=== PATIENT | female | born 1970 | race Caucasian/White ===

== ENCOUNTER 2020-11-02 16:23 | Outpatient (CLI) | payer BC, SELFPAY ==
--- NOTE | ~2020-11-02 | MM_ITS ---
EXAMINATION: MM screening [facility] BI w kareem HISTORY: Screening mammogram TECHNIQUE: Craniocaudal and mediolateral oblique 3-D tomosynthesis images were obtained and synthetic 2-D images were generated. CAD analysis was submitted and interpreted. COMPARISON: 10/30/2019, 10/29/2018, 10/23/2017 BREAST PARENCHYMAL COMPOSITION: There are scattered areas of fibroglandular density. FINDINGS: There is no evidence of suspicious mass, calcification, or architectural distortion to sugg est malignancy in either breast. There has been no suspicious interval change. IMPRESSION: 1. No mammographic evidence of malignancy. 2. Recommend routine screening mammography in one year. BI-RADS Category 1: Negative Reviewed, dictated and finalized at location A. E GAME WARDEN
== END 2020-11-02 16:24 | disposition home or self-care (01) ==
LOC: ANHIMG 16:29
PROVIDERS: PCP Nurse Practitioner Family; Visit Provider Nurse Practitioner Family
DX: Z12.31 Encounter for screening mammogram for malignant neoplasm of breast (principal)
CPT/HCPCS: 77063; 77067

== ENCOUNTER 2020-12-02 11:07 | Emergency (ER) | payer BC, SELFPAY ==
--- NOTE | ~2020-12-02 | XR_ITS ---
EXAMINATION: XR shoulder RT min 2V DATE: 12/02/2020 11:33 INDICATION: Right shoulder pain. Fall. TECHNIQUE: 4 views of right shoulder were obtained. COMPARISON: None. FINDINGS: Bone alignment is normal. No fracture. There is mild osteoarthritis of glenohumeral joint a nd acromioclavicular joint. There is a dystrophic calcification at coracoclavicular ligament. IMPRESSION: 1. Mild polyarticular osteoarthritis. Reviewed, dictated and finalized at location A. R ASSEMBLY INSPECTOR
--- NOTE | 2020-12-02 11:21 | ED.UPPEXIN ---
HPI - Extremity Injury (Upper) General Chief Complaint: Extremity Injury, Upper Stated Complaint: fall/rt shoulder Time Seen by Provider: 12/02/20 11:45 Source: patient and RN notes reviewed Mode of arrival: ambulatory Limitations: no limitations History of Present Illness HPI narrative: 50-year-old female presents concern for shoulder pain. Reports 1 hour ago she slipped on ice, hyper abducting her right arm and shoulder causing pain to her right shoulder, mainly in her right axillary area, worsening when she abducts her arm. She reports mild wrist pain, denies wrist tenderness to touch. Reports she took 600 mg of ibuprofen. complaint: injury to: right and shoulder Related Data Home Medications Medication Instructions Recorded Confirmed No Home Medications 12/02/20 12/02/20 Allergies Allergy/AdvReac Type Severity Reaction Status Date / Time povidone Allergy Severe RASH Verified 03/13/18 06:50 adhesive Allergy Unknown RASH Verified 03/13/18 06:50 povidone-iodine Allergy Unknown RASH Verified 03/13/18 06:50 soap Allergy Unknown RASH Verified 03/13/18 06:50 Review of Systems Review of Systems: Narrative: CONSTITUTIONAL: Denies malaise, chills, sweats, or fever. SKIN: Denies abrasions, lacerations MUSCULOSKELETAL: Reports right shoulder, axillary pain NEUROLOGIC: Denies numbness, weakness All systems reviewed & are unremarkable except as noted in HPI and below PMFSH Family History Family History (Updated 04/25/17 @ 12:05 by DOCTOR UNKNOWN) Grandparent Diabetes mellitus Carcinoma of colon Family history of primary malignant neoplasm of liver Family history of malignant neoplasm of esophagus Family history of malignant neoplasm of urinary bladder Mother Asthma Family history of chronic obstructive pulmonary disease Other Family history of malignant neoplasm of ovary Social History Social History Smoking status: Former smoker Smoking end date: 11/04/05 Comments At time of signature, agree with nursing past medical, surgical, social and family history. There is no relevant family history pertinent to the presenting complaint Exam Narrative: Exam Narrative: GENERAL: Well-appearing, well-nourished, and in no acute distress. HEAD: Normocephalic, atraumatic. EYES: PERRLA, conjunctivae clear NECK: Supple. CHEST: Speaks in full sentences. No respiratory distress. HEART: Regular rate and rhythm. Normal and equal peripheral pulses. EXTREMITIES: Right shoulder, arm have normal strength and sensation, normal range of motion. No edema or ecchymosis. 5/5 strength with shoulder abduction, abduction. Normal sensation with sensitivity to light touch and pain. Axillary tenderness. No open wounds, no skin tenting, no devitalized tissue or atrophy, no trophic changes, no obvious deformity, alignment normal, nearby joints and structures intact. Distal pulses palpable and equal bilaterally, skin warm, dry, pink. Capillary refill less than 3 seconds. SKIN: Warm, dry, no rash. NEURO: Alert and oriented x3. PSYCH: Normal mood and affect Course Course Emergency Course: Patient is aware of diagnosis, understands and agrees to treatment plan. Anticipatory guidance given. Patient agrees to follow-up as directed and is aware of reasons to seek care at the emergency department. Portions of this record may have been created with voice recognition software Vital Signs Vital signs: Vital Signs Temperature 97.8 F 12/02/20 11:22 Pulse Rate 67 12/02/20 11:22 Respiratory Rate 16 12/02/20 11:22 Blood Pressure 129/60 12/02/20 11:22 Pulse Oximetry 100 12/02/20 11:22 Temperature 97.8 F 12/02/20 11:22 Pulse Rate 67 12/02/20 11:22 Respiratory Rate 16 12/02/20 11:22 Blood Pressure 129/60 12/02/20 11:22 Pulse Oximetry 100 12/02/20 11:22 Reviewed. MDM - Extremity Injury (Upper) MDM Narrative Medical decision making narrative: Patients injury and pain is consistent with musculoskelet
[2020-12-02 11:22] VITALS: BP 129/60; PULSE 67; RESP 16; TEMP 36.6; O2SAT 100
== END 2020-12-02 12:05 | disposition home or self-care (01) ==
PROVIDERS: Emergency Provider Nurse Practitioner; PCP Family Medicine
DX: S49.91XA Unspecified injury of right shoulder and upper arm, initial encounter (principal); W00.0XXA Fall on same level due to ice and snow, initial encounter
CPT/HCPCS: 73030; 99213; G0463

== ENCOUNTER → 2021-01-21 01:25 | Outpatient (CLI) | payer BC, SELFPAY ==
[2021-01-21 19:13] LABS: SARS-CoV-2 RNA PCR Negative
== END ==
PROVIDERS: PCP Family Medicine; Visit Provider Internal Medicine Gastroenterology
DX: Z01.812 Encounter for preprocedural laboratory examination (principal); Z20.822 Contact with and (suspected) exposure to COVID-19
CPT/HCPCS: C9803; U0003; U0005

== ENCOUNTER 2021-01-25 02:28 | Day surgery (SDC) | payer BC, SELFPAY ==
[2021-01-17 14:03] VITALS: BMI 27.3
[2021-01-25 09:59] VITALS: BP 128/83; PULSE 88; RESP 16; TEMP 36.6; O2SAT 97; BMI 27.5
[2021-01-25] MEDS: LACTATED RINGERS 1,000 ML 150 ML IV CONT (10:09)
--- NOTE | 2021-01-25 10:37 | WPDANESEPPF ---
Anes - Initial Pre Proc Eval Procedure: Operation Date: 01/25/21 11:00 Proposed Procedures p Colonoscopy - Tashi Alejandra MD Date/Time: 01/25/21 10:37 Surgeon: Tashi Alejandra MD Pre Op Diagnosis: personal history of Colon Cancer Patient Data Age: 50 Gender: F Height: 5 ft 3 in Weight: 70.5 kg Last Vital Signs Temp 98 F 01/25/21 09:59 Pulse 88 01/25/21 09:59 Resp 16 01/25/21 09:59 BP 128/83 01/25/21 09:59 Pulse Ox 97 01/25/21 09:59 Allergies Allergy/AdvReac Type Severity Reaction Status Date / Time povidone Allergy Severe RASH Verified 01/25/21 09:58 adhesive Allergy Unknown RASH Verified 01/25/21 09:58 povidone-iodine Allergy Unknown RASH Verified 01/25/21 09:58 soap Allergy Unknown RASH Verified 01/25/21 09:58 Home Medications Medication Instructions Recorded Confirmed Type No Home Medications 12/02/20 01/25/21 History Patient hx anesthesia problems: none Family hx anesthesia problems: none PMFSH Past Medical History Medical History (Updated 01/25/21 @ 10:33 by Richie Kendrick MD) H/O colon cancer, stage I H/O: lung cancer Family History Family History (Updated 04/25/17 @ 12:05 by DOCTOR UNKNOWN) Grandparent Diabetes mellitus Carcinoma of colon Family history of primary malignant neoplasm of liver Family history of malignant neoplasm of esophagus Family history of malignant neoplasm of urinary bladder Mother Asthma Family history of chronic obstructive pulmonary disease Other Family history of malignant neoplasm of ovary Social History Social History Years smoked: 8 Smoking status: Former smoker Tobacco type: cigarettes Smoking end date: 11/04/05 Alcohol intake: never Substance use: never Substance use type: does not use Living arrangements: with family Spiritual care concerns: No Anes - Eval Final PreProcedure Day of Procedure 01/25/21 10:37 Patient weight: normal Heart: regular rate and rhythm Lungs: clear to auscultation Airway: Mallampati scale class II Neurological: alert and oriented Last oral intake: >/= 8 hours ASA classification: III Emergent: no Anesthetic plan: proceed Anesthesia type and monitoring: general GIVS and standard monitoring Informed Consent: The patient's anesthetic plan and its attendant risks and benefits were discussed with the patient/family/POA. Questions were solicited and answers provided to the satisfaction of the patient/family/POA.
[2021-01-25 11:14] VITALS: BP 133/61; PULSE 81; RESP 24; O2SAT 98
[2021-01-25 11:24] VITALS: BP 106/75; PULSE 78; RESP 21; O2SAT 100
[2021-01-25 11:34] VITALS: BP 131/92; PULSE 76; RESP 22; O2SAT 99
[2021-01-25 11:44] VITALS: BP 121/76; PULSE 67; RESP 16; O2SAT 100
--- NOTE | 2021-01-26 17:10 | PM.HPGS ---
History of Present Illness History of Present Illness Consent: Risks, benefits, and alternatives have been discussed and questions answered. Patient agrees to proceed with procedure. Chief complaint: personal history of Colon Cancer Narrative: Jessica Rizzo is a 50 year old female with a personal history of colon cancer Review of Systems Review of Systems: All systems reviewed & are unremarkable except as noted in HPI and below PMFSH Past Medical History Medical History H/O colon cancer, stage I H/O: lung cancer Family History Family History Grandparent Diabetes mellitus Carcinoma of colon Family history of primary malignant neoplasm of liver Family history of malignant neoplasm of esophagus Family history of malignant neoplasm of urinary bladder Mother Asthma Family history of chronic obstructive pulmonary disease Other Family history of malignant neoplasm of ovary Social History Social History Years smoked: 8 Smoking status: Former smoker Tobacco type: cigarettes Smoking end date: 11/04/05 Alcohol intake: never Substance use: never Substance use type: does not use Living arrangements: with family Spiritual care concerns: No Meds Home Medications and Allergies Home Medications Medication Instructions Recorded Confirmed Type No Home Medications 12/02/20 01/25/21 History Allergies Allergy/AdvReac Type Severity Reaction Status Date / Time povidone Allergy Severe RASH Verified 01/25/21 09:58 adhesive Allergy Unknown RASH Verified 01/25/21 09:58 povidone-iodine Allergy Unknown RASH Verified 01/25/21 09:58 soap Allergy Unknown RASH Verified 01/25/21 09:58 Exam Resp: Auscultation: clear to auscultation bilaterally Cardio: Rate: regular rate Rhythm: regular rhythm GI: GI Palp: Yes Soft to palpation and No Tenderness to palpation present (GI) Assessment and Plan Assessment and plan (1) History of colon cancer: Code(s): Z85.038 - Personal history of other malignant neoplasm of large intestine Status: Acute
== END 2021-01-25 11:51 | disposition home or self-care (01) ==
PROVIDERS: PCP Family Medicine; Visit Provider Internal Medicine Gastroenterology
PROC: 0DJD8ZZ Inspection of Lower Intestinal Tract, Via Natural or Artificial Opening Endoscopic (ICD-10-PCS; CPT 45378; principal; 2021-01-25 11:00)
DX: Z12.11 Encounter for screening for malignant neoplasm of colon (principal); Z85.038 Personal history of other malignant neoplasm of large intestine; Z98.0 Intestinal bypass and anastomosis status; Z90.49 Acquired absence of other specified parts of digestive tract; Z85.118 Personal history of other malignant neoplasm of bronchus and lung; Z87.891 Personal history of nicotine dependence
CPT/HCPCS: 45378; C9803; J2704; J7120; U0003; U0005

== ENCOUNTER 2021-03-31 14:18 | Outpatient (CLI) | payer BC, SELFPAY ==
--- NOTE | ~2021-03-31 | US_ITS ---
EXAMINATION: US art doppler w press DOLORES RODRIGUEZ DATE: 03/31/2021 16:05 CDT INDICATION: Leg pain TECHNIQUE: Segmental pressures and plethysmographic and Doppler waveforms of the brachial and lower e xtremity arteries were obtained. COMPARISON: None. FINDINGS: Right and left brachial artery pressures of 110 mm Hg and 126 mm Hg, respectively, are concordant (no rmal difference <= 30 mmHg). The right high-thigh pressure index is 1.26 (normal > 1.2). The right ankle-brachial index (ZINA) is 1 .17 (normal >= 0.9-1.0). The right great toe-brachial index (TBI) is 0.69 (normal >= 0.60). The right lower extremity segmental pressure gradients are within normal limits (normal gradients <= 20-30 mmH g between adjacent levels on the same leg or the same levels on the two legs). Arterial Doppler wavef orms are predominantly biphasic. The left high-thigh pressure index is 1.33. The left ZINA is 1.12. The left TBI is 0.33. The left lowe r extremity segmental pressure gradients are increased below the left ankle. Arterial Doppler wavefor ms are biphasic. IMPRESSION: 1. Decreased left toe brachial index measuring 0.33, consistent with peripheral arterial disease. 2: Normal right lower extremity arterial Doppler. Reviewed, dictated and finalized at location A.
== END 2021-03-31 14:19 | disposition home or self-care (01) ==
PROVIDERS: PCP Family Medicine; Visit Provider Nurse Practitioner Family
DX: M79.605 Pain in left leg (principal); M79.604 Pain in right leg
CPT/HCPCS: 93923

== ENCOUNTER 2021-12-20 16:19 | Outpatient (CLI) | payer BC, SELFPAY ==
--- NOTE | ~2021-12-20 | MM_ITS ---
EXAMINATION: MM screening [facility] w kareem HISTORY: Screening TECHNIQUE: Craniocaudal and mediolateral oblique 3-D tomosynthesis images were obtained and synthetic 2-D images were generated. CAD analysis was submitted and interpreted. COMPARISON: Comparison to multiple prior studies sequentially, with oldest reviewed study dated 10/04. BREAST PARENCHYMAL COMPOSITION: The breasts are heterogenously dense, which may obscure small masses FINDINGS: There is no evidence of suspicious mass, calcification, or architectural distortion to sugg est malignancy in either breast. There has been no suspicious interval change. IMPRESSION: 1. No mammographic evidence of malignancy. 2. Recommend routine screening mammography in one year. BI-RADS Category 1: Negative Reviewed, dictated and finalized at location A. ELET FORM COVERER
== END 2021-12-20 16:20 | disposition home or self-care (01) ==
LOC: ANHIMG 16:21
PROVIDERS: PCP Nurse Practitioner Family; Visit Provider Obstetrics & Gynecology Gynecology
DX: Z12.31 Encounter for screening mammogram for malignant neoplasm of breast (principal)
CPT/HCPCS: 77063; 77067

== ENCOUNTER 2022-01-07 10:13 | Emergency (ER) | payer BC, SELFPAY ==
--- NOTE | ~2022-01-07 | XR_ITS ---
EXAMINATION: XR ankle RT min 3V DATE: 01/07/2022 10:33 INDICATION: Right ankle pain. TECHNIQUE: 4 views of right ankle were obtained. COMPARISON: None. FINDINGS: Bone alignment is normal. No fracture. Joint spaces are well maintained. There is an enthes ophyte at posterior aspect of calcaneal tuberosity. There is ankle soft tissue swelling. IMPRESSION: 1. No fracture. Reviewed, dictated and finalized at location A. TER ADVOCATE IMPRESSION: 1. No fracture.
--- NOTE | ~2022-01-07 | XR_ITS ---
EXAMINATION: XR foot RT min 3V DATE: 01/07/2022 10:33 INDICATION: Right foot pain. TECHNIQUE: 4 views of right foot were obtained. COMPARISON: None. FINDINGS: Bone alignment is normal. No fracture. There is mild osteoarthritis of first metatarsophala ngeal joint. There is an enthesophyte at posterior aspect of calcaneal tuberosity. IMPRESSION: 1. Mild osteoarthritis of first metatarsophalangeal joint. Reviewed, dictated and finalized at location A. REPAIRER
[2022-01-07 10:33] VITALS: BP 118/68; PULSE 92; RESP 16; TEMP 36.7; O2SAT 100
--- NOTE | 2022-01-07 10:37 | ED.GENADULT ---
HPI - General Adult General Chief complaint: Extremity Injury, Lower Stated complaint: Right ankle injury Source: patient Mode of arrival: ambulatory Limitations: no limitations History of Present Illness HPI narrative: Patient presents for evaluation of right ankle pain. She indicates she was walking on steps last night when she missed a step and fell, landing on her right ankle. She heard a pop and called for help. She did not hit her head nor did she have a LOC. She states her current pain level is 2/10 in severity, worse with movement and weightbearing. She has been ambulating with crutches. She took ibuprofen last night. It helped for about four hours. She took a second dose thereafter, but has not taken any medication today for her pain. No additional complaints or concerns. Related Data Home Medications Medication Instructions Recorded Confirmed No Home Medications 12/02/20 01/25/21 Allergies Allergy/AdvReac Type Severity Reaction Status Date / Time povidone Allergy Severe RASH Verified 01/25/21 09:58 adhesive Allergy Unknown RASH Verified 01/25/21 09:58 povidone-iodine Allergy Unknown RASH Verified 01/25/21 09:58 soap Allergy Unknown RASH Verified 01/25/21 09:58 Review of Systems Review of Systems: CONSTITUTIONAL: Denies fever, chills, or sweats. EYES: Denies visual changes, redness, or discharge. ENT: Denies rhinorrhea, congestion, sore throat, or otalgia. CARDIOVASCULAR: Denies chest pain, palpitations RESPIRATORY: Denies cough or dyspnea. GASTROINTESTINAL: Denies abdominal pain, nausea, vomiting, or diarrhea. GENITOURINARY: Denies dysuria or hematuria. SKIN: Denies rash or itching. MUSCULOSKELETAL: Reports right ankle pain and swelling. Denies back pain. NEUROLOGIC: Denies headache, numbness, dizziness, or weakness. PSYCHIATRIC: Denies anxiety or depression. [facility] Past Medical History Medical History H/O colon cancer, stage I H/O: lung cancer Surgical History Surgical History History of hysterectomy History of lobectomy of lung History of partial colectomy Family History Family History Grandparent Diabetes mellitus Carcinoma of colon Family history of primary malignant neoplasm of liver Family history of malignant neoplasm of esophagus Family history of malignant neoplasm of urinary bladder Mother Asthma Family history of chronic obstructive pulmonary disease Other Family history of malignant neoplasm of ovary Social History Social History Years smoked: 8 Smoking status: Former smoker Tobacco type: cigarettes Smoking end date: 11/04/05 Alcohol intake: never Substance use: never Substance use type: does not use Living arrangements: with family Gender identity (if verbalized by the patient): Female Sexual Orientation (if Verbalized by the Patient): Straight or Heterosexual Spiritual care concerns: No Exam Narrative: GENERAL: Well-appearing, well-nourished, and in no acute distress. HEAD: Normocephalic, atraumatic. EYES: PERRLA and EOMI. ENT: Nares clear, no rhinorrhea or epistaxis. Mucous membranes moist. Oropharynx without tonsillar hypertrophy exudate or other lesions. Bilateral TMs pearly calderón nonbulging NECK: Supple. No adenopathy or masses. No carotid bruits or JVD CHEST: Clear to auscultation. No respiratory distress. No wheezes rales or rhonchi HEART: Regular rate and rhythm. No murmur heard. Normal peripheral pulses. ABDOMEN: Soft, nontender, nondistended, normal active bowel sounds. EXTREMITIES: There is swelling noted to right ankle. No crepitus or deformity. No tenderness over medial or lateral malleolus. Tenderness over dorsal aspect of proximal right foot. Decreased dorsi and plantarflexion of r
== END 2022-01-07 10:56 | disposition home or self-care (01) ==
PROVIDERS: Emergency Provider Nurse Practitioner
DX: S93.401A Sprain of unspecified ligament of right ankle, initial encounter (principal); W10.9XXA Fall (on) (from) unspecified stairs and steps, initial encounter; Z87.891 Personal history of nicotine dependence; Z85.038 Personal history of other malignant neoplasm of large intestine; Z85.118 Personal history of other malignant neoplasm of bronchus and lung
CPT/HCPCS: 73610; 73630; 99213; G0463

== ENCOUNTER 2022-10-16 11:57 | Emergency (ER) | payer BC, SELFPAY ==
[2022-10-16] VITALS (9 sets, daily range): BP systolic 97–116; BP diastolic 60–88; PULSE 70–93; RESP 14–20; TEMP 36.9; O2SAT 98–100
--- NOTE | ~2022-10-16 | XR_ITS ---
EXAMINATION: XR chest 2V DATE: 10/16/2022 12:27 INDICATION: Chest pain. TECHNIQUE: Frontal and lateral views of the chest were obtained. COMPARISON: None. FINDINGS: There is no pneumonia, pleural effusion, or pneumothorax. The heart size is normal. IMPRESSION: 1. No acute cardiopulmonary disease. Reviewed, dictated and finalized at location A. ORATE TRAINING MANAGER
--- NOTE | ~2022-10-16 | CT_ITS ---
EXAMINATION: CT brain wo con INDICATION: Dizziness and paresthesias COMPARISON: None TECHNIQUE: Standard unenhanced head CT. The dose-length product (DLP) was 605.33 mGy-cm. The mA was a djusted according to patient size. Iterative reconstruction technique was employed. FINDINGS: There is no intracranial hemorrhage, acute infarction, or abnormal mass lesion. The ventric les are normal. There is no abnormal mass effect or midline shift. The calderón-white matter differentiat ion is normal. The basal cisterns are patent. The orbits are normal. The paranasal sinuses, mastoids and calvarium are normal. IMPRESSION: 1. No acute intracranial abnormality. Reviewed, dictated and finalized at location A. IZED FINISH PLATER
--- NOTE | 2022-10-16 12:01 | ECG_ITS ---
Measurements Intervals Accident Rate: 84 P: 69 WY: 131 QRS: 61 QRSD: 77 T: 42 QT: 364 QTc: 432 Interpretive Statements SINUS RHYTHM NO PREVIOUS ECG AVAILABLE FOR COMPARISON Electronically Signed On 10-16-2022 16:36:39 CITY PLANNING ENGINEER by Chava Lee M.D.
[2022-10-16 12:59] LABS: Basophils Percent Auto 0.3 % (0.2-1.2); Eosinophils Percent Auto 0.3 % (0-4.4); Hemoglobin 13.3 g/dL (12.0-15.0); Immature Granulocyte Absolute 0.04 K/mm3 (0.00-0.031); Immature Granulocyte Percent A 0.4 % (0-0.5); Lymphocytes Absolute Auto 1.77 K/mm3 (0.9-3.2); Lymphocytes Percent Auto 17.3 % (18.3-44.2); Mean Corpuscular HGB Conc 34.1 g/dl (32-36); Mean Corpuscular Hemoglobin 30.3 pg (26-34); Mean Corpuscular Volume 88.8 fl (80-100); Mean Platelet Volume 10.8 fl (7.4-10.4); Monocytes Absolute Auto 0.4 K/mm3 (0.1-0.6); Monocytes Percent Auto 4.1 % (2.6-8.5); Neutrophils Percent Auto 77.6 % (45.5-73.1); Platelet Count Result 255 k/mm3 (150-375); Red Blood Count 4.39 M/mm3 (4.2-5.4); Red Cell Distribution Width 12.5 % (11.5-14.5); White Blood Count 10.2 K/mm3 (4.5-10.0)
[2022-10-16 13:08] LABS: Prothrombin Time 13.2 Seconds (11.1-14.7)
[2022-10-16 13:09] LABS: Partial Thromboplastin Time 27.3 SECONDS (22.3-36.8)
[2022-10-16 13:10] LABS: Alanine Aminotransferase 30 U/L (6-35); Albumin Level 4.6 g/dL (3.5-5.1); Alkaline Phosphatase 80 U/L (38-126); Anion Gap 9 mmol/L (8-16); Aspartate Amino Transferase 40 U/L (14-36); Bilirubin,Total 0.6 mg/dL (0.2-1.3); Blood Urea Nitrogen 12 mg/dL (7-17); Calcium 8.5 mg/dL (8.4-10.2); Carbon Dioxide 24 mmol/L (22-30); Chloride 94 mmol/L (98-107); Estimated CRCL calculation 90 ml/min; Estimated Glomerular Filt Rate > 60; Glucose 83 mg/dL (65-110); Lipase 144 U/L (23-300); Potassium 3.7 mmol/L (3.4-5.0); Sodium 127 mmol/L (137-145)
[2022-10-16 13:22] LABS: Troponin I < 0.012 ng/mL (0.000-0.034)
[2022-10-16 16:06] LABS: Troponin I < 0.012 ng/mL (0.000-0.034)
--- NOTE | 2022-10-16 16:18 | ED.CHESTPAIN ---
HPI - Chest Pain General Chief Complaint: Chest Pain Stated Complaint: dizziness with bilateral hand/leg numbness Time Seen by Provider: 10/16/22 15:58 Source: patient Mode of arrival: ambulatory Limitations: no limitations History of Present Illness HPI narrative: This is a 52 year old female that presents to the ER for chest pain ongoing over the last month. Reports the pain is burning in nature and intermittent. Sometimes the pain is worse with movement. Reports she did recently see her PCP for heart burn. She was taking famotidine, but felt her symptoms were relieved so stopped taking it. Reports she has been feeling lightheaded and weak. She woke up today with paresthesias in her bilateral lower extremities which prompted her to be seen today. Denies fever, vision changes, abdominal pain, vomiting, cough, shortness of breath, dysuria, or lower extremity edema. Related Data Home Medications Medication Instructions Recorded Confirmed No Home Medications 12/02/20 01/25/21 Allergies Allergy/AdvReac Type Severity Reaction Status Date / Time povidone Allergy Severe RASH Verified 10/16/22 11:58 adhesive Allergy Unknown RASH Verified 10/16/22 11:58 povidone-iodine Allergy Unknown RASH Verified 10/16/22 11:58 soap Allergy Unknown RASH Verified 10/16/22 11:58 Review of Systems Review of Systems: CONSTITUTIONAL: Denies fever EYES: Denies visual changes CARDIOVASCULAR: Reports chest pain, and edema. RESPIRATORY: Denies cough or dyspnea. GASTROINTESTINAL: Denies abdominal pain, nausea, vomiting GENITOURINARY: Denies dysuria MUSCULOSKELETAL: Denies back pain, joint pain, or myalgia. NEUROLOGIC: Denies headache, numbness, or weakness. All systems reviewed & are unremarkable except as noted in HPI and below PMFSH Past Medical History Medical History H/O colon cancer, stage I H/O: lung cancer Surgical History Surgical History History of hysterectomy History of lobectomy of lung History of partial colectomy Family History Family History Grandparent Diabetes mellitus Carcinoma of colon Family history of primary malignant neoplasm of liver Family history of malignant neoplasm of esophagus Family history of malignant neoplasm of urinary bladder Mother Asthma Family history of chronic obstructive pulmonary disease Other Family history of malignant neoplasm of ovary Social History Social History Years smoked: 8 Smoking status: Former smoker Tobacco type: cigarettes Smoking end date: 11/04/05 Alcohol intake: never Substance use: never Substance use type: does not use Gender identity (if verbalized by the patient): Female Sexual Orientation (if Verbalized by the Patient): Straight or Heterosexual Spiritual care concerns: No Exam Narrative: GENERAL: Well-appearing, well-nourished, and in no acute distress. HEAD: Normocephalic, atraumatic. EYES: PERRLA and EOMI. ENT: Nares clear, no rhinorrhea or epistaxis. Mucous membranes moist. Oropharynx without tonsillar hypertrophy exudate or other lesions. Bilateral TMs pearly calderón non-bulging NECK: Supple. No adenopathy or masses. CHEST: Clear to auscultation. No respiratory distress. No wheezes rales or rhonchi HEART: Regular rate and rhythm. No murmur heard. Normal peripheral pulses. EXTREMITIES: Normal range of motion. No edema. Strength equal in bilateral upper and lower extremities (5/5) SKIN: Warm, dry, no rash. NEURO: No focal deficits. Alert and oriented x3. Cranial nerves II through XII grossly intact PSYCH: Normal mood and affect Course Consultations Consultation #1: Spoke with hospitalist about patient and work-up who accepts admission Date: 10/16/22 Vital Signs Vital signs: Vital Signs
[2022-10-16 17:01] LABS: NT Pro B Type Natriuretic Pept 69 pg/mL (5-100)
[2022-10-16] MEDS: SODIUM CHLORIDE 0.9% IV 1,000 ML 999 ML IV CONT (17:09)
[2022-10-16] MEDS: PANTOPRAZOLE SODIUM IV 40 MG VIAL IV PUSH (17:09)
[2022-10-16 17:14] LABS: D Dimer 0.34 ug/mL (<0.48)
[2022-10-16 20:00] LABS: Magnesium 1.9 mg/dL (1.6-2.3)
[2022-10-16 20:23] LABS: Influenza A QL RT-PCR Negative (Negative); Influenza B QL RT-PCR Negative (Negative); SARS-CoV-2 RNA PCR Negative
[2022-10-16 21:09] LABS: Folic Acid > 20.0 ng/mL (2.76->20); Vitamin B12 > 1000.0 pg/mL (239-931)
== END 2022-10-16 19:54 | disposition home or self-care (01) ==
PROVIDERS: Emergency Medicine; Physician Assistant; Emergency Provider Emergency Medicine; PCP Nurse Practitioner Family
DX: E87.1 Hypo-osmolality and hyponatremia (principal); R20.2 Paresthesia of skin; Z85.038 Personal history of other malignant neoplasm of large intestine; Z85.118 Personal history of other malignant neoplasm of bronchus and lung
CPT/HCPCS: 36415; 70450; 71046; 80053; 82607; 82746; 83690; 83735; 83880; 84484; 85025; 85380; 85610; 85730; 87636; 93005; 96361; 96374; 99284; C9113; J7030

== ENCOUNTER 2022-12-24 10:08 | Outpatient (CLI) | payer BC, SELFPAY ==
--- NOTE | ~2022-12-24 | MM_ITS ---
EXAMINATION: MM screening [facility] w kareem HISTORY: Screening mammogram TECHNIQUE: Craniocaudal and mediolateral oblique 3-D tomosynthesis images were obtained and synthetic 2-D images were generated. CAD analysis was submitted and interpreted. COMPARISON: December 20, 2021, November 02, 2020, October 30, 2019 bilateral screening mammogram exa minations BREAST PARENCHYMAL COMPOSITION: There are scattered areas of fibroglandular density. FINDINGS: There is no evidence of suspicious mass, calcification, or architectural distortion to sugg est malignancy in either breast. There has been no suspicious interval change. IMPRESSION: 1. No mammographic evidence of malignancy. 2. Recommend routine screening mammography in one year. BI-RADS Category 1: Negative Reviewed, dictated and finalized at location A. MENT STAPLER
== END 2022-12-24 10:09 | disposition home or self-care (01) ==
PROVIDERS: PCP Nurse Practitioner Family; Visit Provider Advanced Practice Midwife
DX: Z12.31 Encounter for screening mammogram for malignant neoplasm of breast (principal)
CPT/HCPCS: 77063; 77067

== ENCOUNTER 2023-12-25 08:55 | Outpatient (CLI) | payer BC, SELFPAY ==
[2023-12-25 09:14] LABS: Basophils Percent Auto 0.5 % (0.2-1.2); Eosinophils Absolute Auto 0.1 K/mm3 (0-0.3); Eosinophils Percent Auto 1.2 % (0-4.4); Hematocrit 42.5 % (37.0-47.0); Hemoglobin 13.7 g/dL (12.0-15.0); Immature Granulocyte Absolute 0.03 K/mm3 (0.00-0.031); Immature Granulocyte Percent A 0.5 % (0-0.5); Lymphocytes Absolute Auto 1.86 K/mm3 (0.9-3.2); Lymphocytes Percent Auto 32.2 % (18.3-44.2); Mean Corpuscular HGB Conc 32.2 g/dl (32-36); Mean Corpuscular Hemoglobin 28.8 pg (26-34); Mean Corpuscular Volume 89.5 fl (80-100); Mean Platelet Volume 9.8 fl (7.4-10.4); Monocytes Absolute Auto 0.5 K/mm3 (0.1-0.6); Monocytes Percent Auto 8.7 % (2.6-8.5); Neutrophils Absolute Auto 3.3 K/mm3 (1.3-6.7); Neutrophils Percent Auto 56.9 % (45.5-73.1); Platelet Count Result 288 k/mm3 (150-375); Red Blood Count 4.75 M/mm3 (4.2-5.4); Red Cell Distribution Width 12.4 % (11.5-14.5); White Blood Count 5.8 K/mm3 (4.5-10.0)
== END 2023-12-25 08:56 | disposition home or self-care (01) ==
PROVIDERS: PCP Family Medicine; Visit Provider Internal Medicine Gastroenterology
DX: R19.7 Diarrhea, unspecified (principal)
CPT/HCPCS: 36415; 85025; 87045; 87427; 87449; 89055

== ENCOUNTER 2024-01-15 10:02 | Outpatient (CLI) | payer BC, SELFPAY ==
--- NOTE | ~2024-01-15 | MM_ITS ---
EXAMINATION: MM screening [facility] w kareem HISTORY: Screening mammogram TECHNIQUE: Craniocaudal and mediolateral oblique 3-D tomosynthesis images were obtained and synthetic 2-D images were generated. CAD analysis was submitted and interpreted. COMPARISON: December 24, 2022, December 20, 2021, November 02, 2020 bilateral screening mammogram exa minations BREAST PARENCHYMAL COMPOSITION: There are scattered areas of fibroglandular density. FINDINGS: There is no evidence of suspicious mass, calcification, or architectural distortion to sugg est malignancy in either breast. There has been no suspicious interval change. IMPRESSION: 1. No mammographic evidence of malignancy. 2. Recommend routine screening mammography in one year. BI-RADS Category 1: Negative Reviewed, dictated and finalized at location A.
== END 2024-01-15 10:03 | disposition home or self-care (01) ==
LOC: ANHIMG 10:07
PROVIDERS: PCP Family Medicine; Visit Provider Obstetrics & Gynecology Gynecology
DX: Z12.31 Encounter for screening mammogram for malignant neoplasm of breast (principal)
CPT/HCPCS: 77063; 77067

== ENCOUNTER 2024-02-17 01:14 | Day surgery (SDC) | payer BC, SELFPAY ==
[2024-01-31 14:52] VITALS: BMI 26.6
[2024-02-17 13:08] VITALS: BP 132/83; PULSE 86; RESP 18; TEMP 36.1; O2SAT 99
[2024-02-17] MEDS: LACTATED RINGERS 1,000 ML 150 ML IV CONT (13:16)
--- NOTE | 2024-02-17 13:49 | WPDANESEPPF ---
Anes - Initial Pre Proc Eval Procedure: Operation Date: 02/17/24 14:00 Proposed Procedures p Colonoscopy - Imer Alicia MD Date/Time: 02/17/24 13:49 Surgeon: Imer Alicia MD Pre Op Diagnosis: Diarrhea, acquired absence of other specified par Patient Data Age: 53 Gender: F Height: 1.6 m Weight: 72 kg Last Vital Signs Temp 96.9 F L 02/17/24 13:08 Pulse 86 02/17/24 13:08 Resp 18 02/17/24 13:08 BP 132/83 02/17/24 13:08 Pulse Ox 99 02/17/24 13:08 O2 Del Method Room Air 02/17/24 13:08 Allergies Allergy/AdvReac Type Severity Reaction Status Date / Time povidone Allergy Severe RASH Verified 02/17/24 13:07 adhesive Allergy Unknown RASH Verified 02/17/24 13:07 povidone-iodine Allergy Unknown RASH Verified 02/17/24 13:07 soap Allergy Unknown RASH Verified 02/17/24 13:07 Home Medications Medication Instructions Recorded Confirmed Type No Home Medications 12/02/20 01/31/24 History Patient hx anesthesia problems: none Family hx anesthesia problems: none Results Review: All pre-operative results and documents have been reviewed as part of the pre-operative evaluation. [facility] Past Medical History Medical History H/O colon cancer, stage I H/O: lung cancer Surgical History Surgical History History of hysterectomy History of lobectomy of lung History of partial colectomy Family History Family History Grandparent Diabetes mellitus Carcinoma of colon Family history of primary malignant neoplasm of liver Family history of malignant neoplasm of esophagus Family history of malignant neoplasm of urinary bladder Mother Asthma Family history of chronic obstructive pulmonary disease Other Family history of malignant neoplasm of ovary Social History Social History Years smoked: 8 Smoking status: Former smoker Tobacco type: cigarettes Smoking end date: 11/04/05 Alcohol intake: never Alcohol use details: rarely Substance use: never Substance use type: does not use Do You Feel Safe in your Home?: Yes Lack of Transportation: No Lack of Food: Never True Current Housing: I Have Housing Concerned About Future Housing: No Difficulty Paying Gas/Electric Bills: No Difficulty Paying for Meds: No Currently Unemployed: No Education: High School Diploma/GED Difficulty w/ Childcare or Family Care: No Living arrangements: with family Gender identity (if verbalized by the patient): Female Sexual Orientation (if Verbalized by the Patient): Straight or Heterosexual Spiritual care concerns: No Anes - Eval Final PreProcedure Day of Procedure 02/17/24 13:49 Patient weight: normal Heart: regular rate and rhythm Lungs: clear to auscultation Airway: Mallampati scale class II Neurological: alert and oriented Last oral intake: >/= 8 hours ASA classification: III Emergent: no Anesthetic plan: proceed Anesthesia type and monitoring: general GIVS and standard monitoring Results Review: All pre-operative results and documents have been reviewed as part of the pre-operative evaluation. Informed Consent: The patient's anesthetic plan and its attendant risks and benefits were discussed with the patient/family/POA. Questions were solicited and answers provided to the satisfaction of the patient/family/POA.
--- NOTE | 2024-02-17 13:59 | PM.HPGS ---
History of Present Illness History of Present Illness Consent: Risks, benefits, and alternatives have been discussed and questions answered. Patient agrees to proceed with procedure. Chief complaint: Diarrhea, acquired absence of other specified par Narrative: Jessica Rizzo is a 53 year old female with history of colon cancer 2017, last colonoscopy 2020 Review of Systems Review of Systems: All systems reviewed & are unremarkable except as noted in HPI and below PMFSH Past Medical History Medical History H/O colon cancer, stage I H/O: lung cancer Surgical History Surgical History History of hysterectomy History of lobectomy of lung History of partial colectomy Family History Family History Grandparent Diabetes mellitus Carcinoma of colon Family history of primary malignant neoplasm of liver Family history of malignant neoplasm of esophagus Family history of malignant neoplasm of urinary bladder Mother Asthma Family history of chronic obstructive pulmonary disease Other Family history of malignant neoplasm of ovary Social History Social History Years smoked: 8 Smoking status: Former smoker Tobacco type: cigarettes Smoking end date: 11/04/05 Alcohol intake: never Alcohol use details: rarely Substance use: never Substance use type: does not use Do You Feel Safe in your Home?: Yes Lack of Transportation: No Lack of Food: Never True Current Housing: I Have Housing Concerned About Future Housing: No Difficulty Paying Gas/Electric Bills: No Difficulty Paying for Meds: No Currently Unemployed: No Education: High School Diploma/GED Difficulty w/ Childcare or Family Care: No Living arrangements: with family Gender identity (if verbalized by the patient): Female Sexual Orientation (if Verbalized by the Patient): Straight or Heterosexual Spiritual care concerns: No Meds Home Medications and Allergies Home Medications Medication Instructions Recorded Confirmed Type No Home Medications 12/02/20 01/31/24 History Allergies Allergy/AdvReac Type Severity Reaction Status Date / Time povidone Allergy Severe RASH Verified 02/17/24 13:07 adhesive Allergy Unknown RASH Verified 02/17/24 13:07 povidone-iodine Allergy Unknown RASH Verified 02/17/24 13:07 soap Allergy Unknown RASH Verified 02/17/24 13:07 Vital Signs Vital Signs - 24 hr 02/17/24 13:08 Temperature 96.9 F L Pulse Rate 86 Respiratory Rate 18 Blood Pressure 132/83 Pulse Oximetry 99 Oxygen Delivery Room Air Exam Const: General: comfortable and no acute distress HENMT: Face/Nose/Sinus: Normal nares present Eyes: General: appearance normal, both eyes and all related structures Neck: Neck: no JVD Resp: Auscultation: clear to auscultation bilaterally Cardio: Rate: regular rate Rhythm: regular rhythm GI: Inspection: non-distended GI Palp: Yes Soft to palpation Skin: General skin exam: normal color Neuro: General: gait normal Speech: normal speech Extrem: General: normal to inspection Psych: Mental Status: mental status grossly normal Assessment and Plan Assessment and plan (1) History of colon cancer: Code(s): Z85.038 - Personal history of other malignant neoplasm of large intestine Status: Acute Assessment and Plan: colonoscopy
[2024-02-17 14:22] VITALS: BP 90/57; PULSE 86; RESP 20; O2SAT 100
[2024-02-17 14:32] VITALS: BP 101/66; PULSE 85; RESP 19; O2SAT 100
[2024-02-17 14:42] VITALS: BP 110/75; PULSE 82; RESP 18; O2SAT 100
== END 2024-02-17 14:47 | disposition home or self-care (01) ==
PROVIDERS: PCP Family Medicine; Visit Provider Internal Medicine Gastroenterology
PROC: 0DJD8ZZ Inspection of Lower Intestinal Tract, Via Natural or Artificial Opening Endoscopic (ICD-10-PCS; CPT 45378; principal; 2024-02-17 14:00)
DX: R19.7 Diarrhea, unspecified (principal); K64.8 Other hemorrhoids; K57.30 Diverticulosis of large intestine without perforation or abscess without bleeding; Z98.890 Other specified postprocedural states; Z90.49 Acquired absence of other specified parts of digestive tract; Z98.0 Intestinal bypass and anastomosis status; Z87.891 Personal history of nicotine dependence; Z85.038 Personal history of other malignant neoplasm of large intestine; Z85.118 Personal history of other malignant neoplasm of bronchus and lung; Z80.0 Family history of malignant neoplasm of digestive organs; Z80.52 Family history of malignant neoplasm of bladder; Z80.41 Family history of malignant neoplasm of ovary
CPT/HCPCS: 45378; J2704; J7120

== ENCOUNTER 2024-03-17 09:49 | Outpatient (CLI) | payer BC, SELFPAY ==
--- NOTE | 2024-03-17 11:15 | NEURO_ITS ---
Impression: # Non-diabetic complains of numbness of hands. # Moderate left Carpal Tunnel Syndrome. # Mild right Carpal Tunnel Syndrome. # No ulnar neuropathy. # Ulnar to median nerve cross innervation. # Normal needle/EMG exam. Nerve Conduction Studies Anti Sensory Summary Table Stim Site NR Peak (ms) P-T Amp (?V) Site1 Site2 Delta-P (ms) Dist (cm) Preston (m/s) Left Median Anti Sensory (2-3nd Digit) Wrist 4.2 67.7 Wrist 2-3nd Digit 4.2 14.0 33 Wrist 4.6 26.5 Wrist 2-3nd Digit 4.2 14.0 33 Right Median Anti Sensory (2-3nd Digit) Wrist 3.5 59.2 Wrist 2-3nd Digit 3.5 14.0 40 Wrist 3.3 39.2 Wrist 2-3nd Digit 3.5 14.0 40 Left Radial Anti Sensory (Base 1st Digit) Wrist 1.8 32.8 Wrist Base 1st Digit 1.8 0.0 Right Radial Anti Sensory (Base 1st Digit) Wrist 2.4 17.4 Wrist Base 1st Digit 2.4 0.0 Left Ulnar Anti Sensory (5th Digit) Wrist 2.3 72.8 Wrist 5th Digit 2.3 14.0 61 Right Ulnar Anti Sensory (5th Digit) Wrist 2.3 68.2 Wrist 5th Digit 2.3 14.0 61 Motor Summary Table Stim Site NR Onset (ms) O-P Amp (mV) Site1 Site2 Delta-0 (ms) Dist (cm) Preston (m/s) Left Median Motor (Abd Poll Brev) Wrist 4.8 5.6 Elbow Wrist 3.8 26.0 68 Elbow 8.6 5.0 Right Median Motor (Abd Poll Brev) Wrist 3.2 6.5 Elbow Wrist 4.9 27.0 55 Elbow 8.1 4.5 Left Ulnar Motor (Abd Dig Minimi) Wrist 2.7 8.1 A Elbow Wrist 4.8 29.0 60 A Elbow 7.5 6.8 Right Ulnar Motor (Abd Dig Minimi) Wrist 2.3 8.2 A Elbow Wrist 4.9 28.0 57 A Elbow 7.2 6.3 F Wave Studies NR F-Lat (ms) L-R F-Lat (ms) Left Median (Mrkrs) (Abd Poll Brev) 28.77 3.54 Right Median (Mrkrs) (Abd Poll Brev) 25.23 3.54 Left Ulnar (Mrkrs) (Abd Dig Min) 25.70 0.47 Right Ulnar (Mrkrs) (Abd Dig Min) 25.23 0.47 EMG Side Muscle Nerve Root Ins Act Fibs Amp Dur Recrt Comment Right 1stDorInt Ulnar C8-T1 Nml Nml Nml Nml Nml Right Ext Indicis Radial (Post Int) C7-8 Nml Nml Nml Nml Nml Right Ext Digitorum Radial (Post Int) C7-8 Nml Nml Nml Nml Nml Right BrachioRad Radial C5-6 Nml Nml Nml Nml Nml Right PronatorTeres Median C6-7 Nml Nml Nml Nml Nml Right Abd Poll Brev Median C8-T1 Nml Nml Nml Nml Nml Right ABD Dig Min Ulnar C8-T1 Nml Nml Nml Nml Nml Left 1stDorInt Ulnar C8-T1 Nml Nml Nml Nml Nml Left Ext Indicis Radial (Post Int) C7-8 Nml Nml Nml Nml Nml Left Ext Digitorum Radial (Post Int) C7-8 Nml Nml Nml Nml Nml Left BrachioRad Radial C5-6 Nml Nml Nml Nml Nml Left PronatorTeres Median C6-7 Nml Nml Nml Nml Nml Left Abd Poll Brev Median C8-T1 Nml Nml Nml Nml Nml Left ABD Dig Min Ulnar C8-T1 Nml Nml Nml Nml Nml MTDD
== END 2024-03-17 09:50 | disposition home or self-care (01) ==
LOC: ANHNEURO 09:50
PROVIDERS: PCP Family Medicine; Visit Provider Plastic Surgery
DX: G56.03 Carpal tunnel syndrome, bilateral upper limbs (principal)
CPT/HCPCS: 95886; 95911

== ENCOUNTER 2024-04-22 00:06 | Day surgery (SDC) | payer BC, SELFPAY ==
[2024-04-13 11:16] VITALS: BMI 27.6
--- NOTE | 2024-04-13 11:47 | PC.NURSE ---
Report to the Outpatient Waiting Room, entrance under the green pavilion located off [facility], at time _1230_ on date _[id number]_. Planned Procedure Time: _230pm_. Time changes happen often and if your time is changed the preop area will call you the afternoon before. - You and your visitor will be asked to self-screen and do not enter if you have any COVID symptoms. - A mask is optional within the hospital at this time. May have clear liquids (water, carbonated beverages, clear teas, apple juice) until 630am prior to surgery with a maximum of 20 ounces. - No food from midnight until time of surgery, No drink after 630am. If time of surgery changes, remember no food or drink 8 hours before surgery. Take the following medications with a SIP of water the morning of surgery: __None DO NOT STOP ANY OF YOUR OTHER PRESCRIPTION MEDICATIONS PRIOR TO SURGERY ?EXCEPT THE FOLLOWING Medications to discontinue per physician All vitamins and supplements Date to take last vppg___[id number] Please no make-up, nail sinhala, hairspray, perfume, deodorant, or body powder the day of surgery. No jewelry (including any body piercings) or valuables the day of surgery, leave them at home. Please take a shower or bath the night before, or the morning of, surgery with an antibacterial soap. Wear comfortable, loose fitting clothing. - Jewelry must be removed prior to entering the operating room. Rings and piercings that are not removed may be cut off. - The hospital will not accept responsibility for valuables. - Please leave all valuables, including medications, at home the day of surgery. If you are going home after surgery, a licensed limo driver must drive you home. - NO public transportation without another adult if you receive anesthesia. - We recommend that an adult stay with you for 24 hours following discharge. - We also recommend that you do not drive, make important decision, drink alcoholic beverages, or take any drugs that were not prescribed by your health care provider for at least 24 hours after your discharge time. Follow any additional instructions given to you from your surgeon. If you or anyone in your household have experienced Covid symptoms in the past week, please notify your surgeon or the nurse liaison at the phone number below for possible testing. Telephone instructions given to _Jessica__and asked if any additional questions and then verbalized understanding. Patient advised to call surgeon office or pre surgery nurse liaison [phone] if any additional questions.
--- NOTE | 2024-04-22 06:54 | WPDHPUPDATE1 ---
History and Physical Update Update Date/Time: 04/22/24 06:54 Patient seen and examined in pre-operative holding area. No interval change in medical history or symptoms. Patient recalls previous discussion of benefits and alternatives to procedure. Continues to desire to proceed with left endoscopic possible open carpal tunnel release and left cubital tunnel release. Reviewed procedure, post-op expectations and risks including but not limited to bleeding, infection, injury to tendon/nerve/vessel, decreased hand function, stiffness, RSD, no change or worsening of symptoms. I discussed the possible use of assistants and their participation in the case. Patient stated understanding and signed the consent form wishing to proceed.
--- NOTE | 2024-04-22 06:55 | W.PM.PROC2 ---
Procedure Note - Detailed Date of Procedure 04/22/24 Pre-op Diagnosis left carpal and cubital tunnel syndrome Post-op Diagnosis Same Procedure Performed left ectr and CuTR Surgeon Fela Puri MD Anesthesia MAC Description of Procedure INFORMED CONSENT: The patient was seen and examined and marked in the pre-op area.? The patient signed the consent form. PROCEDURE IN DETAIL:The patient taken back to OR on the stretcher in supine position. Time out performed with anesthesia, surgeon and staff agreeing on patient's name site and surgery to be performed SCDs were placed on the lower extremities and inflated. A tourniquet was placed on {left} upper extremity and antibiotics given IV After anesthesia administered sedation I injected {10}cc 1%lido with epi and 0.5% marcaine plain at the operative sites The?{left upper extremity}?was prepped and draped in sterile fashion the??{left upper extremity} was? exsanguinated with Esmarch bandage and tourniquet inflated to 250mmHg I made a transverse incision in the {left} volar distal wrist crease through skin and dermis with 15 blade scalpel.? Littler scissors spread down to antebrachial fascia. A small incision was made in antebrachial fascia allowing access to Carpal tunnel. I proceeded with sequential dilation staying in line with the ring finger and hugging the hook of the hamate.? I then used the synovial elevator to free any adhesions from the underside of the transverse carpal ligament. Next I was able to insert the Microaire endoscopic carpal tunnel device with direct visualization of the transverse fibers on the monitor and proceeded with complete segmental retrograde release of the ligament in its entirety.? I irrigated with normal saline and closed with 4-0 monocryl for dermis and subcuticular closure. I next proceeded with making a longitudinal incision between two heads for flexor carpi ulnaris at end of {left} cubital tunnel with 15 blade scalpel.? Littler scissors were used to spread down to FCU fascia.? An incision was made in FCU fascia and ulnar nerve identified exiting cubital tunnel.? I proceeded with complete retrograde release of the cubital tunnel including 7cm proximal for the intermuscular septum.? The nerve appeared healthy with visible vaso nervorum.? There was no subluxation on full elbow range of motion. ? I irrigated with normal saline and closure with 4-0 monocryl for dermis and subcuticular. The incisions were covered with Dermabond then 4x4s, iwona, and a posterior elbow and volar wrist splint for patient safety, security and comfort and secured with jannette bandages after the tourniquet was let down noting the hand was warm and well perfused.? Patient awaken from anesthesia and transferred to recovery in stable condition Complications - none EBL- 1cc Disposition - home in stable conditions [facility] [place] Surgery - Charge Forward: Surgery Billing ([id number])
--- NOTE | 2024-04-22 09:09 | WPDANESEPPF ---
Anes - Initial Pre Proc Eval Procedure: Operation Date: 04/22/24 11:00 Proposed Procedures p Left Endoscopic Carpal Tunnel Release, Possible Open, Left Cubital Tunnel Release - Fela Puri MD Date/Time: 04/22/24 09:09 Surgeon: Fela Puri MD Pre Op Diagnosis: lesion left ulnar nerve,left carpal tunnel syndr Patient Data Age: 53 Gender: F Height: 1.6 m Weight: 70.9 kg Allergies Allergy/AdvReac Type Severity Reaction Status Date / Time adhesive Allergy Unknown RASH Verified 04/13/24 11:14 povidone-iodine Allergy Unknown RASH Verified 04/13/24 11:14 Home Medications Medication Instructions Recorded Confirmed Type Lactobacillus 40-Bifidobact 1 cap PO DAILY 04/13/24 04/13/24 History 3-S.thermophilus 100 billion cell capsule (Probiotic) ascorbic acid (vitamin C) 500 mg 500 mg PO DAILY 04/13/24 04/13/24 History tablet (Vitamin C) biotin 10,000 mcg capsule 10,000 mcg PO DAILY 04/13/24 04/13/24 History cholecalciferol (vitamin D3) 125 125 mcg PO DAILY 04/13/24 04/13/24 History mcg (5,000 unit) tablet (Vitamin D3) tramadol 50 mg tablet 50 mg PO Q6H PRN pain #12 tabs 04/22/24 Rx Patient hx anesthesia problems: none Family hx anesthesia problems: none Results Review: All pre-operative results and documents have been reviewed as part of the pre-operative evaluation. [facility] Past Medical History Medical History (Updated 02/19/24 @ 15:00 by Fela Puri MD) H/O colon cancer, stage I H/O: lung cancer Surgical History Surgical History (Updated 04/22/24 @ 09:31 by Bhavin Ruth DO) History of hysterectomy History of lobectomy of lung 2019 History of partial colectomy Family History Family History Grandparent Diabetes mellitus Carcinoma of colon Family history of primary malignant neoplasm of liver Family history of malignant neoplasm of esophagus Family history of malignant neoplasm of urinary bladder Mother Asthma Family history of chronic obstructive pulmonary disease Other Family history of malignant neoplasm of ovary Social History Social History Years smoked: 3 Smoking status: Former smoker Tobacco type: cigarettes Smoking end date: 04/13/94 Alcohol intake: never Alcohol use details: rarely Substance use: never Substance use type: does not use Do You Feel Safe in your Home?: Yes Lack of Transportation: No Lack of Food: Never True Current Housing: I Have Housing Concerned About Future Housing: No Difficulty Paying Gas/Electric Bills: No Difficulty Paying for Meds: No Currently Unemployed: No Education: High School Diploma/GED Difficulty w/ Childcare or Family Care: No Living arrangements: with family Gender identity (if verbalized by the patient): Female Sexual Orientation (if Verbalized by the Patient): Straight or Heterosexual Spiritual care concerns: No Anes - Eval Final PreProcedure Day of Procedure 04/22/24 09:09 Patient weight: overweight Heart: regular rate and rhythm Lungs: clear to auscultation Airway: Mallampati scale class II Neurological: alert and oriented Last oral intake: >/= 8 hours ASA classification: III Emergent: no Anesthetic plan: proceed Anesthesia type and monitoring: general GIVS and standard monitoring Results Review: All pre-operative results and documents have been reviewed as part of the pre-operative evaluation. Informed Consent: The patient's anesthetic plan and its attendant risks and benefits were discussed with the patient/family/POA. Questions were solicited and answers provided to the satisfaction of the patient/family/POA.
[2024-04-22 09:43] VITALS: BP 124/68; PULSE 73; RESP 16; TEMP 36.7; O2SAT 100
[2024-04-22 09:44] VITALS: BMI 29.2
[2024-04-22] MEDS: LIDO 1%/EPINEPHRINE 1:100,000 50 ML VIAL 10 ML INFILTRATE (09:56)
[2024-04-22] MEDS: LACTATED RINGERS 1,000 ML 30 ML IV CONT (09:59)
[2024-04-22] MEDS: ceFAZolin 2 GM/D5W 50 ML 2 GM/50 ML BAG IVPB (10:10)
[2024-04-22 10:43] VITALS: BP 103/60; PULSE 77; RESP 14; O2SAT 100
[2024-04-22 11:15] VITALS: BP 103/60; PULSE 77; RESP 16; O2SAT 100
[2024-04-22 11:45] VITALS: BP 110/62; PULSE 61; RESP 16
[2024-04-22 12:15] VITALS: BP 127/61; PULSE 62; RESP 16
== END 2024-04-22 12:33 | disposition home or self-care (01) ==
PROVIDERS: PCP Family Medicine; Visit Provider Plastic Surgery
PROC: 01N54ZZ Release Median Nerve, Percutaneous Endoscopic Approach (ICD-10-PCS; CPT 29848; principal; 2024-04-22 11:00)
DX: G56.02 Carpal tunnel syndrome, left upper limb (principal); G56.22 Lesion of ulnar nerve, left upper limb; Z85.118 Personal history of other malignant neoplasm of bronchus and lung; Z90.2 Acquired absence of lung [part of]; Z90.49 Acquired absence of other specified parts of digestive tract; Z87.891 Personal history of nicotine dependence
CPT/HCPCS: 29848; 64718; J0690; J2250; J2405; J2704; J3010; J7120

== ENCOUNTER → 2024-06-17 00:31 | Day surgery (SDC) | payer BC, SELFPAY ==
[2024-06-10 15:23] VITALS: BMI 29.7
--- NOTE | 2024-06-10 15:30 | PC.NURSE ---
Report to the Outpatient Waiting Room, entrance under the green pavilion located off [facility], at time _1215_ on date 06/17/24_. Planned Procedure Time: _1415__. Time changes happen often and if your time is changed the preop area will call you the afternoon before. - You and your visitor will be asked to self-screen and do not enter if you have any COVID symptoms. - A mask is optional within the hospital at this time. Patients may have clear liquids (water, carbonated beverages, clear teas, apple juice) until 8 hours prior to surgery with a maximum of 20 ounces. - No food from midnight until time of surgery - Infants may have breast milk until 4 hours before surgery, infant formula 6 hours prior to surgery. - Children will be allowed to drink immediately following surgery. If applicable, please bring a bottle or sippy cup to assist with drinking. Juice, water, soda, and popsicles are readily available. For infants on formula, please bring formula the day of surgery. Pacifiers are allowed. Take the following medications with a SIP of water the morning of surgery: NONE DO NOT STOP ANY OF YOUR OTHER PRESCRIPTION MEDICATIONS PRIOR TO SURGERY ?EXCEPT THE FOLLOWING Medications to discontinue per physician VITAMINS/ SUPPLIMENTS Date to take last dose 06/14/24 Please no make-up, nail german, hairspray, perfume, deodorant, or body powder the day of surgery. No jewelry (including any body piercings) or valuables the day of surgery, leave them at home. Please take a shower or bath the night before, or the morning of, surgery with an antibacterial soap. Wear comfortable, loose fitting clothing. Children are encouraged to wear pajamas. - Jewelry must be removed prior to entering the operating room. Rings and piercings that are not removed may be cut off. - The hospital will not accept responsibility for valuables. - Please leave all valuables, including medications, at home the day of surgery. If you are going home after surgery, a licensed cdl truck driver must drive you home. - NO public transportation without another adult if you receive anesthesia. - We recommend that an adult stay with you for 24 hours following discharge. - We also recommend that you do not drive, make important decision, drink alcoholic beverages, or take any drugs that were not prescribed by your health care provider for at least 24 hours after your discharge time. For Pediatric surgeries, we recommend two adults accompany the child home. Follow any additional instructions given to you from your surgeon. If you or anyone in your household have experienced Covid symptoms in the past week, please notify your surgeon or the nurse liaison at the phone number below for possible testing. Telephone instructions given to PATIENT__and asked if any additional questions and then verbalized understanding. Patient advised to call surgeon office or pre surgery nurse liaison [phone] if any additional questions.
--- NOTE | 2024-06-17 07:01 | PM.HPGS ---
History of Present Illness History of Present Illness Consent: Chief complaint: right carpal tunnel synd, lesion right ulnar nerve Narrative: Patient seen and examined in pre-operative holding area. No interval change in medical history or symptoms. Patient recalls previous discussion of benefits and alternatives to procedure. Continues to desire to proceed with right endoscopic possible open carpal tunnel release and right cubital tunnel release . Reviewed procedure, post-op expectations and risks including but not limited to bleeding, infection, injury to tendon/nerve/vessel, decreased hand function, stiffness, RSD, no change or worsening of symptoms. I discussed the possible use of assistants and their participation in the case. Patient stated understanding and signed the consent form wishing to proceed. Review of Systems Review of Systems: All systems reviewed & are unremarkable except as noted in HPI and below PMFSH Past Medical History Medical History H/O colon cancer, stage I H/O: lung cancer Surgical History Surgical History History of hysterectomy History of lobectomy of lung 2019 History of partial colectomy Family History Family History Grandparent Diabetes mellitus Carcinoma of colon Family history of primary malignant neoplasm of liver Family history of malignant neoplasm of esophagus Family history of malignant neoplasm of urinary bladder Mother Asthma Family history of chronic obstructive pulmonary disease Other Family history of malignant neoplasm of ovary Social History Social History Smoking packs per day: 0.5 Smoking cigarettes per day: 10.0 Years smoked: 7 Smoking pack-years: 3.50 Smoking status: Former smoker Tobacco type: cigarettes Smoking end date: 04/13/94 Additional smoking assessment comments: QUIT 2001 Alcohol intake: current Alcohol use details: 4 DRINKS PER YEAR Substance use: never Substance use type: does not use Do You Feel Safe in your Home?: Yes Lack of Transportation: No Lack of Food: Never True Current Housing: I Have Housing Concerned About Future Housing: No Difficulty Paying Gas/Electric Bills: No Difficulty Paying for Meds: No Currently Unemployed: No Education: High School Diploma/GED Difficulty w/ Childcare or Family Care: No Living arrangements: with family Gender identity (if verbalized by the patient): Female Sexual Orientation (if Verbalized by the Patient): Straight or Heterosexual Spiritual care concerns: No Meds Home Medications and Allergies Home Medications Medication Instructions Recorded Confirmed Type Lactobacillus 40-Bifidobact 1 cap PO DAILY 04/13/24 06/17/24 History 3-S.thermophilus 100 billion cell capsule (Probiotic) ascorbic acid (vitamin C) 500 mg 500 mg PO DAILY 04/13/24 06/17/24 History tablet (Vitamin C) biotin 10,000 mcg capsule 10,000 mcg PO DAILY 04/13/24 06/17/24 History cholecalciferol (vitamin D3) 125 125 mcg PO DAILY 04/13/24 06/17/24 History mcg (5,000 unit) tablet (Vitamin D3) magnesium 200 mg tablet 400 mg PO DAILY 06/10/24 06/17/24 History potassium 99 mg tablet 200 mg PO DAILY 06/10/24 06/17/24 History Allergies Allergy/AdvReac Type Severity Reaction Status Date / Time adhesive Allergy Unknown RASH Verified 06/17/24 11:45 povidone-iodine Allergy Unknown RASH Verified 06/17/24 11:45 Exam Narrative: unchanged Assessment and Plan Assessment and plan (1) Ulnar neuropathy at elbow: Qualifiers: Laterality: unspecified laterality Qualified Code(s): G56.20 - Lesion of ulnar nerve, unspecified upper limb Code(s): G56.20 - Lesion of ulnar nerve, unspecified upper limb Status: Acute Asse
--- NOTE | 2024-06-17 07:02 | W.PM.PROC2 ---
Procedure Note - Detailed Date of Procedure 06/17/24 Pre-op Diagnosis right carpal and cubital tunnel syndrome Post-op Diagnosis Same Procedure Performed right ectr and CuTR Surgeon Fela Puri MD Perinatology Physician lara jonas pa-c Anesthesia MAC Description of Procedure INFORMED CONSENT: The patient was seen and examined and marked in the pre-op area.? The patient signed the consent form. PROCEDURE IN DETAIL:The patient taken back to OR on the stretcher in supine position. Time out performed with anesthesia, surgeon and staff agreeing on patient's name site and surgery to be performed SCDs were placed on the lower extremities and inflated. A tourniquet was placed on {right} upper extremity and antibiotics given IV After anesthesia administered sedation I injected {10}cc 1%lido with epi and 0.5% marcaine plain at the operative sites The?{right upper extremity}?was prepped and draped in sterile fashion the??{right upper extremity} was? exsanguinated with Esmarch bandage and tourniquet inflated to 250mmHg I made a transverse incision in the {right} volar distal wrist crease through skin and dermis with 15 blade scalpel.? Littler scissors spread down to antebrachial fascia. A small incision was made in antebrachial fascia allowing access to Carpal tunnel. I proceeded with sequential dilation staying in line with the ring finger and hugging the hook of the hamate.? I then used the synovial elevator to free any adhesions from the underside of the transverse carpal ligament. Next I was able to insert the Microaire endoscopic carpal tunnel device with direct visualization of the transverse fibers on the monitor and proceeded with complete segmental retrograde release of the ligament in its entirety.? I irrigated with normal saline and closed with 4-0 monocryl for dermis and subcuticular closure. I next proceeded with making a longitudinal incision between two heads for flexor carpi ulnaris at end of {right} cubital tunnel with 15 blade scalpel.? Littler scissors were used to spread down to FCU fascia.? An incision was made in FCU fascia and ulnar nerve identified exiting cubital tunnel.? I proceeded with complete retrograde release of the cubital tunnel including 7cm proximal for the intermuscular septum.? The nerve appeared healthy with visible vaso nervorum.? There was no subluxation on full elbow range of motion. ? I irrigated with normal saline and closure with 4-0 monocryl for dermis and subcuticular. The incisions were covered with Dermabond then 4x4s, iwona, and a posterior elbow and volar wrist splint for patient safety, security and comfort and secured with jannette bandages after the tourniquet was let down noting the hand was warm and well perfused.? Patient awaken from anesthesia and transferred to recovery in stable condition Complications - none EBL- 1cc Disposition - home in stable conditions lara jonas pa-c was essential for positioning, retraction, closure and dressing placement [facility] Billing Surgery - Charge Forward: Surgery Billing ([id number], same for lara adding and omitting [id number])
[2024-06-17 11:50] VITALS: BP 125/70; PULSE 78; RESP 20; TEMP 36.1; O2SAT 100
[2024-06-17] MEDS: LACTATED RINGERS 1,000 ML 30 ML IV CONT (12:15)
--- NOTE | 2024-06-17 12:25 | WPDANESEPPF ---
Anes - Initial Pre Proc Eval Procedure: Operation Date: 06/17/24 14:15 Proposed Procedures p Right Endoscopic Carpal Tunnel Release, Possible Open, Right Cubital Tunnel Release - Fela Puri MD Date/Time: 06/17/24 12:25 Surgeon: Fela Puri MD Pre Op Diagnosis: right carpal tunnel synd, lesion right ulnar nerve Patient Data Age: 54 Gender: F Height: 1.6 m Weight: 74.2 kg Last Vital Signs Temp 36.1 C L 06/17/24 11:50 Pulse 78 06/17/24 11:50 Resp 20 06/17/24 11:50 BP 125/70 06/17/24 11:50 Pulse Ox 100 06/17/24 11:50 O2 Del Method Room Air 06/17/24 11:50 Allergies Allergy/AdvReac Type Severity Reaction Status Date / Time adhesive Allergy Unknown RASH Verified 06/17/24 11:45 povidone-iodine Allergy Unknown RASH Verified 06/17/24 11:45 Home Medications Medication Instructions Recorded Confirmed Type Lactobacillus 40-Bifidobact 1 cap PO DAILY 04/13/24 06/17/24 History 3-S.thermophilus 100 billion cell capsule (Probiotic) ascorbic acid (vitamin C) 500 mg 500 mg PO DAILY 04/13/24 06/17/24 History tablet (Vitamin C) biotin 10,000 mcg capsule 10,000 mcg PO DAILY 04/13/24 06/17/24 History cholecalciferol (vitamin D3) 125 125 mcg PO DAILY 04/13/24 06/17/24 History mcg (5,000 unit) tablet (Vitamin D3) magnesium 200 mg tablet 400 mg PO DAILY 06/10/24 06/17/24 History potassium 99 mg tablet 200 mg PO DAILY 06/10/24 06/17/24 History Patient hx anesthesia problems: none Family hx anesthesia problems: none Results Review: All pre-operative results and documents have been reviewed as part of the pre-operative evaluation. [facility] Past Medical History Medical History H/O colon cancer, stage I H/O: lung cancer Surgical History Surgical History History of hysterectomy History of lobectomy of lung 2019 History of partial colectomy Family History Family History Grandparent Diabetes mellitus Carcinoma of colon Family history of primary malignant neoplasm of liver Family history of malignant neoplasm of esophagus Family history of malignant neoplasm of urinary bladder Mother Asthma Family history of chronic obstructive pulmonary disease Other Family history of malignant neoplasm of ovary Social History Social History Smoking packs per day: 0.5 Smoking cigarettes per day: 10.0 Years smoked: 7 Smoking pack-years: 3.50 Smoking status: Former smoker Tobacco type: cigarettes Smoking end date: 04/13/94 Additional smoking assessment comments: QUIT 2001 Alcohol intake: current Alcohol use details: 4 DRINKS PER YEAR Substance use: never Substance use type: does not use Do You Feel Safe in your Home?: Yes Lack of Transportation: No Lack of Food: Never True Current Housing: I Have Housing Concerned About Future Housing: No Difficulty Paying Gas/Electric Bills: No Difficulty Paying for Meds: No Currently Unemployed: No Education: High School Diploma/GED Difficulty w/ Childcare or Family Care: No Living arrangements: with family Gender identity (if verbalized by the patient): Female Sexual Orientation (if Verbalized by the Patient): Straight or Heterosexual Spiritual care concerns: No Anes - Eval Final PreProcedure Day of Procedure 06/17/24 12:25 Patient weight: overweight Heart: regular rate and rhythm Lungs: clear to auscultation Airway: Mallampati scale class II Neurological: alert and oriented Last oral intake: >/= 8 hours ASA classification: III Emergent: no Anesthetic plan: proceed Anesthesia type and monitoring: general LMA and standard monitoring Results Review: All pre-operative results and documents have been reviewed as part of the pre-operative evaluation.
[2024-06-17] MEDS: ceFAZolin 2 GM/D5W 50 ML 2 GM/50 ML BAG IVPB (13:20)
[2024-06-17] MEDS: LIDO 1%/EPINEPHRINE 1:100,000 50 ML VIAL 10 ML INFILTRATE (13:22)
[2024-06-17] MEDS: BUPivacaine HCL 0.5% PF 30 ML VIAL INFILTRATE (13:22)
[2024-06-17 13:47] VITALS: BP 98/55; PULSE 75; RESP 20; O2SAT 100
[2024-06-17 14:15] VITALS: BP 105/58; PULSE 68; RESP 20
[2024-06-17 14:45] VITALS: BP 118/60; PULSE 76; RESP 20
== END | disposition home or self-care (01) ==
PROVIDERS: PCP Family Medicine; Visit Provider Plastic Surgery
PROC: 01N54ZZ Release Median Nerve, Percutaneous Endoscopic Approach (ICD-10-PCS; CPT 29848; principal; 2024-06-17 14:15)
DX: G56.01 Carpal tunnel syndrome, right upper limb (principal); G56.21 Lesion of ulnar nerve, right upper limb; Z98.890 Other specified postprocedural states; Z90.49 Acquired absence of other specified parts of digestive tract; Z87.891 Personal history of nicotine dependence; Z85.038 Personal history of other malignant neoplasm of large intestine; Z85.118 Personal history of other malignant neoplasm of bronchus and lung; Z80.0 Family history of malignant neoplasm of digestive organs; Z80.52 Family history of malignant neoplasm of bladder; Z80.41 Family history of malignant neoplasm of ovary
CPT/HCPCS: 29848; 64718; J0690; J1100; J2250; J2405; J2704; J3010; J7120

== ENCOUNTER 2024-10-07 09:57 | Outpatient (CLI) | payer BC, SELFPAY ==
[2024-10-07 21:35] LABS: Cholesterol 227 mg/dL (0-200); HDL Direct 69 mg/dL; Triglycerides 101 mg/dL (<150)
[2024-10-07 21:46] LABS: LDL Cholesterol Direct 120 mg/dL
[2024-10-07 22:07] LABS: Thyroid Stimulating Hormone 0.897 uIU/mL (0.465-4.680)
[2024-10-08 01:22] LABS: Hemoglobin A1C 5.5 % (<5.7)
[2024-10-08 03:42] LABS: Iron 165 ug/dL (37-170)
[2024-10-08 04:04] LABS: Free T4 Free Thyroxine 1.03 ng/dL (0.78-2.19); Percent Iron Saturation 42 % (20-50)
[2024-10-09 08:34] LABS: Thyroid Peroxidase Antibodies 1 IU/mL (<9)
== END 2024-10-07 09:58 | disposition home or self-care (01) ==
PROVIDERS: PCP Nurse Practitioner Adult Health; Visit Provider Nurse Practitioner Adult Health
DX: R63.5 Abnormal weight gain (principal); Z13.9 Encounter for screening, unspecified
CPT/HCPCS: 36415; 80061; 82607; 82728; 83036; 83540; 83550; 84439; 84443; 86376

== ENCOUNTER 2025-01-15 08:48 | Outpatient (CLI) | payer BC, SELFPAY ==
--- NOTE | ~2025-01-15 | MM_ITS ---
EXAMINATION: MM screening [facility] BI w kareem HISTORY: Screening mammogram TECHNIQUE: Craniocaudal and mediolateral oblique 3-D tomosynthesis images were obtained and synthetic 2-D images were generated. CAD analysis was submitted and interpreted. COMPARISON: 01/15/2024, 12/24/2022, 12/20/2021 BREAST PARENCHYMAL COMPOSITION:Not Dense. There are scattered areas of fibroglandular density. FINDINGS: No suspicious mass, calcification, or architectural distortion are identified in either lonnie ast to suggest malignancy. There has been no suspicious interval change. IMPRESSION: No mammographic evidence of malignancy. Recommend routine screening mammography in one year. BI-RADS Category 1: Negative Reviewed, dictated and finalized at location .
--- OUTSIDE RECORDS SUMMARY | 2025-01-15 09:17 | XMS_ITS ---
Author Organization [facility] al Address [address] [place] [address] Care Team Providers Care Price Economist Name Role Phone John Bolden MD Unavailable [phone] Lorenza Holloway HYDRO ELECTRIC STATION OPERATOR Primary Care Provider + Active Problems Patient Care Coordination No te Formatting of this note migh t be different from the original. This is a 49-year-old female presenting to us with a pulmonary nodule. She has a history of stage 3 C sigmoid colon cancer and is status post-surgical resection on 03/11/2017 with left hemicolectomy. She completed adjuvant therapy with FOLFOX in September 2017. She underwent a restaging CT of the chest, abdomen and pelvis on 06/23/2019 that demonstrated an enlarging left lower lobe nodule. It now measures 1.6 x 1.3 cm, previously 6 mm. It contains a central calcification, consistent with metastatic colon cancer. We have arranged for her to have pulmonary function testing after her consultation with us. She is here for surgical evaluation. Problem Noted Date Diagnosed Date Malignant neoplasm metastatic to left lung 07/17 Nodule of left lung 06/25/2019 Overview (06/25/2019): Added automatically from request for surgery [id number] Lung nodule 06/24/2019 Malignant neoplasm of sigmoid colon 03/05/2017 Overview (06/29/2019): On 03/11/2017, she underwent a left hemicolectomy. Surgical specimen revealed a [id number] sigmoid adenocarcinoma, moderately differentiated, positive LVI, positive PNI, 5/17 lymph nodes positive, negative surgical margins, MMR intact. Current Treatment and Therapy Plans No current plan information found. Past Treatment and Therapy Plans No past plan information found. Lifetime Dose Tracking * Chemical Lifetime Dose Automatic Entry Manual Entr y DLP 9,633 mGycm 9,633 mGycm 0 mGycm
--- OUTSIDE RECORDS SUMMARY | 2025-01-15 09:18 | XMS_ITS | Clinical Summary ---
Author Organization [facility] al Address [address] [place] [address] Care Team Providers Care Business Services Sales Agent Name Role Phone Roberta Bolden MD Unavailable [phone] Lorenza Holloway NP Primary Care Provider + Allergies Active Allergy Reactions Criticality Noted Date Comments Adhesive Rash Medium 06/29/2019 Adhesive Tape-Silicones Rash High 01/04/2022 Betadine Surgi-Prep Rash Medium 09/16/2023 Chlorhexidine Rash Medium 02/28/2022 Medications amoxicillin (amoxicillin) 500 mg tablet/capsule amoxicillin 500 mg capsule TAKE 1 CAPSULE BY MOUTH EVERY 12 HOURS UNTIL FINISHED Active triamcinolone (Kenalog) 40 mg/mL injection Kenalog 40 mg/mL suspension for injection Take 60 mg every day by injection route for 1 day. Active tuberculin (Tubersol) 5 tub. unit /0.1 mL injection Tubersol 5 tub. unit/0.1 mL intradermal injection solution Take 0.1 mL by intradermal route. Active aspirin 81 mg chewable tablet Take 81 mg by mouth daily Active cholecalciferol (Vitamin D3) 400 unit capsule Active magnesium gluconate 200 mg tabletIndicatio ns:hypomagnesem ia 1 tablet (200 mg total) Active Active Problems Patient Care Coordination No te [...] (06/25/2019): Added automatically from request for surgery [id number] Lung nodule 06/24/2019 Malignant neoplasm of sigmoid colon 03/05/2017 Overview (06/29/2019): On 03/11/2017, she underwent a left hemicolectomy. Surgical specimen revealed a [id number] sigmoid adenocarcinoma, moderately differentiated, positive LVI, positive PNI, 5/17 lymph nodes positive, negative surgical margins, MMR intact. Immunizations Immunization Administration Dates Next Due Sars-CoV-2, Unspecified 01/25/2021 Surgical History Surgery Date Site/Laterality Comments HYSTERECTOMY 02/03/2008 - 03/03/2008 HEMICOLECTOMY 03/04/2017 - 04/03/2017 Left COLONOSCOPY PORTACATH PLACEMENT 03/04/2017 - 04/03/2017 REMOVE PORT 10/04/2017 - 11/03/2017 Medical History Medical History Date Comments Other secondary thrombocytopenia History of chemotherapy 09/2017 Adenocarcinoma of sigmoid colon (HCC) Family History Medical History Relation Name Comments Hodgkin's lymphoma Father Liver cancer Maternal Grandfather Esophageal cancer Maternal Grandmother Ovarian cancer Other Brain cancer Paternal Grandfather Colon cancer Paternal Grandfather Bladder Cancer Paternal Grandmother Relation Name Status Comments Father Maternal Grandfather Maternal Grandmother Other Paternal Grandfather Paternal Grandmother Social History Tobacco Use Types Packs/Day Years Used Date Smoking Tobacco: Former Cigarettes 0.5 13.4 0 06/29/1992 - 2005 Smokeless Tobacco: Never Tobacco Cessation:Counseling Given: Not Answered Alcohol Use Standard Drinks/Week Comments Yes 0 (1 standard drink = 0.6 oz pur e alcohol) occasionally Comments No Sex and Gender Information Value Date Recorded Sex Assigned at Not on file Legal Sex Female 3:52 AM CASING WORKER Gender Identity Not on file Sexual Orientation Not on file Obstetrics History Last Filed Vital Signs Vital Sign Reading Time Taken Comments Blood Pressure 117/75 09/15/2024 2:20 PM CASING WORKER Pulse 76 09/15/2024 2:20 PM CASING WORKER Temperature 36.8 C (98.3 F) 09/15/2024 2:20 PM CASING WORKER Respiratory Rate 16 09/15/2024 2:20 PM CASING WORKER Oxygen Saturation 97% 09/15/2024 2:20 PM CASING WORKER Inhaled Oxygen Concentration - - Weight 75.1 kg (165 lb 9.6 oz) 09/15/2024 2:20 P M CASING WORKER Height 160 cm (5' 3 ) 09/15/2024 2:20 PM CASING WORKER Body Mass Index 29.33 09/15/2024 2:20 PM CASING WORKER Plan of Treatment Health Maintenance Due Date Last Done Comments Depression Screening 1972 Hepatitis C Screening 1972 Hepatitis B Screening 1990 Regular Well Visit/Exam 18-64 1990 Pneumococcal vaccine <65 (1 of 2 - PCV) 1991 Zoster Vaccine (1 of 2) 1991 Breast Cancer Screening-Mammogram 12/24/2023 023, 12/21/2021 Covid-19 Vaccine ( season) 2024 11/02/2021, 01/25/2021, 01/12/2021 Influenza Vaccine (#1) 2024 Colon Cancer Screening-Colonoscopy 03/07/20272016 DTaP/Tdap/Td Vaccine (2 - Td or Tdap) 05/24/2030 Procedures Procedure Name Priority Date/Time Associated Diagnosis Comments CT VIRTUAL COLONOSCOPY DIAGNOSTIC WO CONTRAST Routine 03/07/2017 2:42 PM CDT from Last 3 Months or Most Recently Relevant to Health Maintenance Results * CT Virtual Colonoscopy Diagnostic WO Contrast (03/07/2017 2:42 PM CDT) Anatomical Region Laterality Modality Body N/A Computed Tomogra phy 03/07/2017 2:42 PM CDT Narrative 03/07/2017 2:42 PM CDT NINFA BILLS M.D. LIZZ HA MD FINAL REPORT The radiology attending physician has personally reviewed this study, and has reviewed and/or edited this written report and agrees with it. ACC# Date Time Exam [id number] March 07, 2017 09:42:[id number] Colonography Dx w/o ACC# Date Time Exam [id number] March 07, 2017 09:42:[id number] Colonography Dx w/o EXAMINATION: CT colonography without intravenous contrast HISTORY: Obstructing sigmoid mass on colonoscopy TECHNIQUE: Computed tomographic images through the abdomen and pelvis were obtained without intravenous contrast after the colonic insufflation of CO2 through a rectal catheter. COMPARISON: No prior imaging available for comparison FINDINGS: The following findings are reported according to the CT Colonography Reporting and Data System (C-RADS) from Radiology 2005; 236:3-9. Colonic preparation and distention: Adequate Colonic findings: There is an annular mass in the sigmoid colon which measures approximately 2.5-3 cm in length as seen on image 340 of the supine acquisition (series 2). There is amorphous soft tissue attenuation material adjacent to the mass within the sigmoid mesocolon, which likely represents tumor infiltration and/or mesenteric lymphadenopathy. Extracolonic findings: This CT examination is performed with a low dose technique optimized for evaluation of the colon. Within the limits of this technique. No significant extracolonic findings are present. IMPRESSION: C4: Sigmoid colonic mass, likely primary colonic adenocarcinoma. Soft tissue attenuation material adjacent to the mass within the sigmoid mesocolon, which likely represents tumor infiltration and/or mesenteric lymphadenopathy. Findings were discussed with Dr. Whalen by Dr. Ha at 12:31 pm 03/07/2017. E1: Normal exam other than colonic findings described above. Requested By: ARSLAN WHALEN M.D. Dictated By: LIZZ HA MD on Mar 07 2017 12:32P This document has been electronically signed by: NINFA BILLS M.D. on Mar 07 2017 4:03P [id number] Procedure Note Miscellaneous, Not In File / Provider, MD Tsering - 03/30/2017 NINFA BILLS M.D. LIZZ HA MD FINAL REPORT The radiology attending physician has personally reviewed this study, and has reviewed and/or edited this written report and agrees with it. ACC# Date Time Exam [id number] March 07, 2017 09:42:[id number] Colonography Dx w/o ACC# Date Time Exam [id number] March 07, 2017 09:42:[id number] Colonography Dx w/o EXAMINATION: CT colonography without intravenous contrast HISTORY: Obstructing sigmoid mass on colonoscopy TECHNIQUE: Computed tomographic images through the abdomen and pelvis were obtained without intravenous contrast after the colonic insufflation of CO2 through a rectal catheter. COMPARISON: No prior imaging available for comparison FINDINGS: The following findings are reported according to the CT Colonography Reporting and Data System (C-RADS) from Radiology 2005; 236:3-9. Colonic preparation and distention: Adequate Colonic findings: There is an annular mass in the sigmoid colon which measures approximately 2.5-3 cm in length as seen on image 340 of the supine acquisition (series 2). There is amorphous soft tissue attenuation material adjacent to the mass within the sigmoid mesocolon, which likely represents tumor infiltration and/or mesenteric lymphadenopathy. Extracolonic findings: This CT examination is performed with a low dose technique optimized for evaluation of the colon. Within the limits of this technique. No significant extracolonic findings are present. IMPRESSION: C4: Sigmoid colonic mass, likely primary colonic adenocarcinoma. Soft tissue attenuation material adjacent to the mass within the sigmoid mesocolon, which likely represents tumor infiltration and/or mesenteric lymphadenopathy. Findings were discussed with Dr. Whalen by Dr. Ha at 12:31 pm 03/07/2017. E1: Normal exam other than colonic findings described above. Requested By: ARSLAN WHALEN M.D. Dictated By: LIZZ HA MD on Mar 07 2017 12:32P This document has been electronically signed by: NINFA BILLS M.D. on Mar 07 2017 4:03P [id number] us Not In File Miscellaneous IMG CT PROCEDURES Andreea l Result from Last 3 Months or Most Recently Relevant to Health Maintenance Insurance ANTHEM ACCESS ANTHEM ACCESS Advance Directives For more information, please contact: [phone] * Full Code (Latest Code Status on File) Date Activated Date Inactivated Comments 07/08/2019 8:42 PM 07/10/2019 7:54 PM Care Teams Business Services Sales Agent Relationship Specialty Start Date End Date Lorenza Holloway NP [address] [facility] [place] [address] PCP - General 08/25/21 Roberta Bolden MD [address] [address] Referring Physician Gastroenterology 02/28/21
--- OUTSIDE RECORDS SUMMARY | 2025-01-15 09:18 | XMS_ITS | CONTINUITY OF CARE DOCUMENT ---
Author Name qing longo Address Unknown Organization [facility] Address [address] [place] [address] Phone [phone] Care Team Providers Care Licensed Massage Practitioner Name Role Phone Mariela HUNT, Sylvain Unavailable [phone] Jewel BRAND EXECUTIVE-BC, Lorenza Holland Unavailable Jewel BRAND EXECUTIVE-BC, Lorenza Holland Unavailable PROBLEMS Condition Status Date Provider Notes Cardiology examination active Sylvain Sierra MD Swelling of bilateral legs active Sylvain coombs MD Chest pain, atypical active Sylvain Sierra MD Abnormal routine stress active Sylvain Sierra MD ENCOUNTERS Date Type Provider Location Encounter Diag nosis - In-person encounter Office Visit Sylvain Sierra MD [facility] Abnormal routine stress - In-person encounter Office Visit Sylvain Sierra MD [facility] Chest pain, atypical - In-person encounter Office Visit Sylvain Sierra MD [facility] Cardiology examinationSwelling of bilateral legs VITAL SIGNS Date Observation Value Provider Body Mass Index (Ratio) 31.83 kg/m2 Sabine Sierra MD blood pressure, diastolic 65 mm[Hg] An franklin Savage blood pressure, systolic 123 mm[Hg] Any cesario Savage pulse rate 84 /min Nina Savage oxygen saturation, oximetry 98 % Nina Hussein weight E&M 163 [lb_av] Nina Hussein height E&M 60 [in_i] Nina Hussein blood pressure, cuff size large An franklin Hussein weight E&M 163 [lb_av] Lindsey Yeung height E&M 60 [in_i] Lindsey Yeung Body Mass Index (Ratio) 4.48 kg/m2 Sabine Sierra MD blood pressure, diastolic 75 mm[Hg] Ke mariela Menchaca blood pressure, systolic 114 mm[Hg] Lonnie Menchaca blood pressure, cuff size large Ke mariela Menchaca oxygen saturation, oximetry 99 % Yun Menchaca respiratory rate E&M 14 /min Yun scott pulse rate 74 /min Yun marroquin weight E&M 163 [lb_av] Yun Perez [facility] height E&M 160 [in_i] Yun Perez [facility] Body Mass Index (Ratio) 4.39 kg/m2 Sabine Sierra MD blood pressure, diastolic 72 mm[Hg] Li nkLogic blood pressure, systolic 129 mm[Hg] Melia kLogic blood pressure, diastolic 72 mm[Hg] Sa ra Jade blood pressure, systolic 129 mm[Hg] Olu a Jade oxygen saturation, oximetry 100 % Venus Jade respiratory rate E&M 19 /min Venus Si ms pulse rate 93 /min Venus Jade height E&M 160 [in_i] Venus Jade blood pressure, cuff size regular Sa ra Jade weight E&M 160 [lb_av] Venuscesario Jade ALLERGIES Allergy Name Onset Date Reaction Criticality Status SURGICAL TAPE High Criticality activ e IODINE High Criticality active SOCIAL HISTORY Date Observation Value Provider Underweight no Sylvain Sierra MD social history E&M S moking History: Mk vaca is a former smoker. Sylvain Sierra MD social history reviewed E&M revi ewed - no changes required Sylvain Sierra MD smoking, year quit 2008 Nina Will iams number of years as a smoker 8 a Nina Savage smoking history, tot al pack/day 5 cigs a day Nina Savage cigarette use yes Nina Savage smoking status Former smoker Nina estrada Underweight yes Sylvain Sierra MD alcohol use no Sylvain Sierra MD drug use no Sylvain Sierra MD social history E&M S moking History: Mk vaca is a former smoker. Sylvain Sierra MD social history reviewed E&M revi ewed - no changes required Sylvain Sierra MD number of years as a smoker 8 a Yun Menchaca smoking history, tot al pack/day 5 cigs a day Yun Menchaca smoking, year quit 2008 Yun flores cigarette use yes Yun jackson smoking status Former smoker Yun villafana Underweight yes Sylvain Sierra MD social history reviewed E&M revi ewed - no changes required Sylvain Sierra MD INSURANCE PROVIDERS Payer name Policy type / Coverage type [employer] party ID [facility] [id number] ADVANCE DIRECTIVES Name Date DISCUSSED - NO DECISION MADE TREATMENT PLAN Date Name Performer [id number],S,Continue comp ression socks Sylvain Sierra MD [id number],C,Will check a stress cardiolite Sylvain Sierra MD [id number],S, Sylvain Sierra MD [id number],C,w ill check her reflux study and check an ZINA Sylvain Sierra MD [id number],C,w ill check an echo and routine stress test to evaluate for ischemia. I t is unlikely to be classic obstructive CAd as her symptoms are atypical but she also gets sob at times Sylvain Sierra MD [id number],C,S x do not seem consistent with PAD diagnosis. Ordered ZINA and standing Venous Doppler. Orders: A rterial Duplex Bi-Lower EX ([id number]) V enous Doppler Bilateral LE - Reflux ([id number]) Sylvain Sierra MD Cardiology:Continue compression socks Sylvain Sierra MD Cardiology:Will check a stress c ardiolite Sylvain Sierra MD Cardiology Sylvani Sierra MD Cardiology:will check her reflux study and check an ZINA Sylvain Sierra MD Cardiology:will chec k an echo and routine stress test to evaluate for ischemia. I t is unlikely to be classic obstructive CAd as her symptoms are atypical but she also gets sob at times Sylvain Sierra MD Cardiology:Sx do not seem consistent with PAD diagnosis. Ordered ZINA and standing Venous Doppler. Orders: A rterial Duplex Bi-Lower EX ([id number]) V enous Doppler Bilateral LE - Reflux ([id number]) Sylvain Sierra MD Date Name Stress Exercise Card iolite Venous Doppler Bilat eral LE - Reflux Arterial Duplex Bi-L ower EX Stress Routine Complete Echo Venous Doppler Bilat eral LE - Reflux Arterial Duplex Bi-L suzanne EX HISTORY OF PROCEDURES Procedure Date Procedure Name Provider Procedure Notes S tatus EKG Sylvain Sierra MD completed EKG Sylvain Sierra MD completed
--- OUTSIDE RECORDS SUMMARY | 2025-01-15 09:18 | XMS_ITS | Data Portability ---
Author Organization [facility] [address] [place] [address] Assessment No assessment recorded. Plan of Treatment Reminders Order Date Submit Date Provider Last Modified By Organization Details Last Modified Time Details Appointments None record ed. Lab None record ed. Referral None record ed. Procedures None record ed. Surgeries None record ed. Imaging None record ed. Medication Orders None record ed. Patient TargetsNo targets recorded. Patient InstructionsNo instructions recorded. Reason for Referral None Reported. Procedures Surgical History Date Name Laterality Status Provider Name and Address Organization Details Recorded Time 9 Other completed Nichole Bhat MA [facility] 12/15/2024 10:32:31 7 Other completed Nichole Bhat MA [facility] 12/15/2024 10:32:06 8 hysterectomy completed Nichole Bhat MA [facility] 12/15/2024 10:31:46 Imaging Results None recorded. Procedure Notes None recorded. Medical Equipment None Reported. Allergies No known drug allergies Medications Name Sig Start Date Stop Date Status Note LastModified by Organization Details LastModified Time prednisone 10 mg tablet Take 1 tablet every day by oral route. active Not Available Not Available No t Available Claritin active Not Available Not Avai lable Not Available Sudafed active Not Available Not Avail able Not Available Doxycycline active Not Available Not A vailable Not Available Vitals Date Recorded Body height Body mass index (BMI) Body weight Heart rate Body temperature Systolic blood pressure Diastolic blood pressure Provider Name and Address Organization Details Last Updated DateTime 5 160.02 cm 29.9 kg/m2 77011.3 9 g 91 /min 97.5 [degF] 126 mm[Hg] 76 mm[Hg] Nichole Bhat [facility] 10:28:44 Social History Question Answer Notes LastModified by Organizat ion Details LastModified Time Tobacco Smoking Status Never Smoker Nichole Bhat MA null, [place] - [facility] 12/15/2024 10:31:20 In The 14 Days Before Symptom Onset, Have You Had Close Contact With A Laboratory-confirm ed COVID-19 While That Case Was Ill? No Information n ot available 12/15/2024 In The 14 Days Before Symptom Onset, Have You Had Close Contact With A Person Who Is Under Investigation For COVID-19 While That Person Was Ill? No Information not available 12/15/2024 Have You Been To An Area Known To Be High Risk For COVID-19? No Information not available 12/15/2024 What Was The Date Of Your Most Recent Tobacco Screening? 12/15/2024 Information not available 12/15/2024 Has Tobacco Cessation Counseling Been Provided? No Information not available 12/15/2024 Do You Or Have You Ever Used Any Other Forms Of Tobacco Or Nicotine? No Information not available 12/15/2024 Sex: Female Functional Status None recorded. Mental Status None recorded. Family History Nothing Reported. Medical History Condition Response Cancer Y Gynecological HistoryNo gynecological history recorded. Obstetrics History GPAL:G 0 P 0 0 0 0 Past Encounters Encounter ID Performer Location Encounter Start Date Encounter Closed Date Diagnosis/Indication Diagnosis SNOMED-CT Code Diagnosis ICD10 Code Diagnosis Note [id number] Fortunato Aparicio MD [facility] (Adult Med) [address] [place] [address] 12/15/2024 10:14:51 12/16/2024 16:43:02 Dysfunction of right eustachian tube [id number] 387601 H69.91 ear clear and improving no therapy return if it doesn't resolve Health Concerns Section Related Observation LastModified by Organization Detai ls LastModified Time None Recorded Concern Status LastModified by Organization Details LastModified Time None Recorded Advance Directives Directive None Recorded Payers Encounter Date Sequence Insurance Name Policy Number Policy Todd Covered Member ID Todd Member ID Guarantor Name 12/15/2024 1 [employer] [id number] John Rizzo [id number] Jessica Nailsmukesh Notes Date Note Type Note Provider Name and Address Organization Details Recorded Time 12/15/2024 text/html Pt complaining o f blockage of her right ear for the last month. It started with a sinus infection. She has had antibiotics steroids and now on flonase. She is feeling better but not completely resolved Fortunato Aparicio MD Attn: Accounting,[address] [facility], [place], [address], [facility] 12/15/2024 10:46:09 OBGyn Episode No OBEpisode recorded.
--- OUTSIDE RECORDS SUMMARY | 2025-01-15 09:18 | XMS_ITS | Data Portability ---
Author Organization [place] [employer], Main Office Address [address] [place] [address] Care Team Providers Care Bolt Sorter Name Role Phone LESLEY PRANAY Primary Care Provider [phone] Assessment Encounter Date Assessment Date Assessment LastModified by Organization Details LastModified Time 10/31/2023 10/31/2023 D/w pt about her findings and further plan of care. Explained about different options for her. Pt declined for any labs at this time. Pt says her Gyne checked her labs few weeks ago and all were good except low Vit B12. Will do x-rays. Meds as directed. Ice pack as directed prn. RICE explained in detail. Advised to avoid any strenuous activities/li fting-pushing until cleared. Advised pt to f/u with her Cardio about her leg swelling concern. Educated pt about alarming symptoms to monitor at home and call us back or get checked in ED. F/u in 2 weeks. [email or web address] Not available 10/31/2023 10:11:54 11/11/2023 11/11/2023 D/w pt about her findings and further plan of care. Explained about different options for her. Pt declined for any labs at this time. Pt says her Gyne checked her labs few weeks ago and all were good except low Vit B12. Will refer pt to Hand surgeon. Meds as directed. Cont Ice pack as directed prn. Advised to avoid any strenuous activities/li fting-pushing until cleared. Advised pt to f/u with her Cardio about her leg swelling concern. Educated pt about alarming symptoms to monitor at home and call us back or get checked in ED. F/u with Neuro as per schedule. F/u in few weeks for Annual exam. Not available 11/11/2023 10:52:12 Plan of Treatment Reminders Order Date Submit Date Provider Last Modified By Organization Details Last Modified Time Details Appointments None recorded. Lab None recorded. Referral hand surgeon referral - Please call patient to schedule patient. 2023 024 [email or web address] Fela Puri MD, [address] [facility] [address], [place], [address], 4 16:54:37 neurologist referral - Please call patient to schedule appointment . 2022 023 [email or web address] Josef Arthur MD, [address] [facility] [address], [address], [place], [address], 4 09:28:24 Procedures None recorded. Surgeries None recorded. Imaging XR, hand, 3 or more view 2022 023 [facility], [address] , [place], [address], 3 11:07:19 XR, knee, 3 view 2022 023 [facility], [address] , [place], [address], 3 11:07:50 Medication Orders diclofenac sodium 75 mg tablet,alisha yed release 2023 024 [facility]/Pharmacy #[id number], [address] [facility] [address] [place] [address], [address], 4 10:43:44 ketoconazol e 2 % topical cream 2023 024 [facility]/Pharmacy #[id number], [address] [facility] [address] [place] [address], [address], 4 10:43:45 diclofenac sodium 75 mg tablet,alisha yed release 2022 023 [facility]/Pharmacy #[id number], [address] [place] [address], [address], 3 10:00:13 ketoconazol e 2 % topical cream 2022 023 [facility]/Pharmacy #[id number], [address], [place], [address], 3 10:01:46 Patient TargetsNo targets recorded. Patient InstructionsNo instructions recorded. Reason for Referral Neurologist Referral for Sloane ropathy Please call patient to schedule appointment. Referring Physician: Pranay Lee [facility] Medicine, Encounter Date: 10/31/2023 Hand Surgeon Referral for Pa in of bilateral hands Please call patient to schedule patient. Referring Physician: Pranay Lee [facility] Medicine, Encounter Date: 11/11/2023 Results Created Date Observation Date Name Description Value Unit Range Abnormal Flag Note LastModifiedBy Organization Detail LastModifiedTime 10/18/20 22 10/19/2022 BASIC METAB OLIC PANEL glucose 94 mg/dL 65-99 normal Fasti ng refer ence inter red Not Available [email or web address] [address] [place], [address], 10/19/2022 03:20:57 10/18/20 22 10/19/2022 BASIC METAB OLIC PANEL urea nitrogen (BUN) 10 mg/dL 7-25 normal Not Available [email or web address] [address] [place], [address], 10/19/2022 03:20:57 10/18/20 22 10/19/2022 BASIC METAB OLIC PANEL creatinine 0.73 mg/dL 0.50-1 .03 normal Not Available [email or web address] [address] [place], [address], 10/19/2022 03:20:57 10/18/20 22 10/19/2022 BASIC METAB OLIC PANEL eGFR 100 mL/mi n/1.7 3m2 > or = 60 normal The eGFR is based on the CKD-E PI 2020 equat ion. To calcu late the new eGFR from a previ ous Creat inine or Cysta connie C resul t, go to https ://ww w.little urrutia.anthony samuel/william sterness ional s/ kdoqi /gfr% 5Fcal culat or Not Available [address], [address], 10/19/2022 03:20:57 10/18/20 22 10/19/2022 BASIC METAB OLIC PANEL BUN/creatini ne ratio not applic able (calc ) 6-22 Not Available [address], [address], 10/19/2022 03:20:57 10/18/20 22 10/19/2022 BASIC METAB OLIC PANEL sodium 136 mmol/ L 135-14 6 normal Not Available [address], [address], 10/19/2022 03:20:57 10/18/20 22 10/19/2022 BASIC METAB OLIC PANEL potassium 4.2 mmol/ L 3.5-5. 3 normal Not Available [address], [address], 10/19/2022 03:20:57 10/18/20 22 10/19/2022 BASIC METAB OLIC PANEL chloride 100 mmol/ L 98-110 normal Not Available [address], [address], 10/19/2022 03:20:57 10/18/20 22 10/19/2022 BASIC METAB OLIC PANEL carbon dioxide 30 mmol/ L 20-32 normal Not Available [address], [address], 10/19/2022 03:20:57 10/18/20 22 10/19/2022 BASIC METAB OLIC PANEL calcium 9.4 mg/dL 8.6-10 .4 normal Not Available [address], [address], 10/19/2022 03:20:57 12/21/19 22 12/20/2021 MAMMO , scree angelita, bilat eral No observ ation record ed. [id number], [place], [address], 01/02/2023 08:13:39 12/10/19 23 12/10/2022 elect jaqui raadgr am No observ ation record ed. [facility] [address], [place], [address], 10/31/2023 10:12:23 12/11/19 23 12/10/2022 US, doppl er, venou s No observ ation record ed. [email or web address] [facility] [address], [place], [address], 10/31/2023 10:12:23 12/11/19 23 12/10/2022 US, doppl er echoc ardio gram No observ ation record ed. [facility] [address], [place], [address], 10/31/2023 10:12:23 12/24/19 23 12/24/2022 MAMMO , scree angelita, bilat eral No observ ation record ed. [email or web address] [address] [facility] [address], [place], [address], 10/31/2023 10:12:23 12/27/19 23 12/27/2022 cardi ac stres s test No observ ation record ed. [email or web address] [facility] [address], [place], [address], 10/31/2023 10:12:23 10/31/20 23 XR, hand, 3 or more view [facility] [address], [place] [address] Patien t Name: HAMMAD CHAPMAN [facility] ion #: [id number] Sex: F : 1969 1 Dictat ed By: Shawn Cabrera Attend ing Physic pierre: MERRY LEE Physic pierre: MERRY LEE Exam Date: 2022 09:36 AM Exam Name: XR HAND BILAT 3V Admitt ing Diagno sis(es ): bilate ral hand radiog raph CLINIC AL INDICA TION: pain TECHNI QUE: 3 radiog raphic views of the bilate ral hands were obtain ed. FINDIN GS: There is no eviden ce of acute fractu re or disloc ation. The visual ized joint space is well mainta ined. The alignm ent is anatom ical. Soft tissue s are unrema rkable . IMPRES LYUBOV: No acute fractu re or disloc ation. Electr onical ly Signed by: Shawn Cabrera at 2022 10:06: 05 AM Page 1 [email or web address] [facility] ([facility]) [address] [place] [address], [address], 11/11/2023 10:41:43 10/31/20 23 [facility], knee, [facility] [id number] Patien t Name: HAMMAD CHAPMAN [facility] ion #: [id number] Sex: F : 1969 1 Dictat ed By: Shawn Cabrera Attend ing Physic pierre: MERRY LEE Physic pierre: MERRY LEE Exam Date: 2022 09:36 AM Exam Name: XR KNEE RT 3V Admitt ing Diagno sis(es ): right knee radiog raph CLINIC AL INDICA TION: pain TECHNI QUE: 3 radiog raphic views of the right knee were obtain ed. Compar sangita: none FINDIN GS: There is no eviden ce of acute fractu re or disloc ation. The visual ized joint space is well mainta ined. The alignm ent is anatom ical. Soft tissue s are unrema rkable . IMPRES LYUBOV: No acute fractu re or disloc ation. Electr onical ly Signed by: Shawn Cabrera at 2022 10:06: 40 AM Page 1 [email or web address] [facility] ([facility] [address] [place], [address], 11/11/2023 10:41:43 01/15/20 24 01/15/2024 MAMMO , scree angelita, digit al, bilat eral No observ ation record ed. [email or web address] [address] [facility] [address], [place], [address], 01/15/2024 17:38:05 03/18/20 24 03/17/2024 elect romyo gram + nerve condu ction study No observ ation record ed. [address] [facility] [address], [place], [address], 03/18/2024 10:17:10 Result Notes None recorded. Problems Name Problem SNOMED Code Status Onset Date Resolution Date Notes Provider Name and Address Organization Details Recorded Time Indigesti on 219055464 Active Not Available [facility] [place] [facility] 3 08:08:41 Left flank pain 501556905 Active Not Available [facility] 3 08:08:41 Insomnia 152489824 Active Not Available [facility] 3 08:08:41 Abdominal pain 08497651 Active Not Available [facility] 3 08:08:41 Flushing 319497015 Active Not Available [facility] 3 08:08:41 Labyrinth itis 02286540 Active Not Available [facility] 3 08:08:41 Calculus of kidney and ureter 314459483 Active Not Available [facility] 3 08:08:41 Carcinoma of sigmoid colon 295981713 Active 2016 Not Available [facility] 3 08:08:41 Ovary tender 934147006 Active Not Available [facility] 3 08:08:41 Chest pain 48232167 Active 2021 Not Available [facility] [place] [facility] 3 08:08:41 Pain in pelvis 49777349 Active Not Available [facility] [place] [facility] 3 08:08:42 Lymphaden opathy 84624078 Active Not Available [facility] [place] [facility] 3 08:08:42 Vaginitis 98270905 Active Not Available [facility] [place] [facility] 3 08:08:42 Neuropath y 078987835 Active 2021 Not Available [facility] [place] [facility] 3 08:08:42 Periphera l vascular disease 659907813 Active 2021 Not Available [facility] [place] [facility] 3 08:08:42 Sweating 305691647 Active Not Available [facility] [place] [facility] 3 08:08:42 Mass of colon 831444285 Active 2016 Not Available [facility] [place] [facility] 3 08:08:42 Environme ntal allergy 263669191 Active Not Available [facility] [place] [facility] 3 08:08:43 Night sweats 10405822 Active Not Available [facility] [place] [facility] 3 08:08:43 Urinary tract infectiou s disease 41701532 Active Not Available [facility] [place] [facility] 3 08:08:43 Neck pain 71623002 Active Not Available [facility] [place] [facility] 3 08:08:43 Periphera l arterial disease 559975899 Active 2020 per Arterial doppler 03/2021 Not Available [facility] [place] [facility] 3 08:08:43 Fatigue 62713804 Active Not Available [facility] [place] [facility] 3 08:08:43 Metastati c malignant neoplasm to lung 40218705 Active 2019 colon metastasi s Not Available [facility] 3 08:08:43 COVID-19 834430408 Active 2022 Lorenza Holloway NP [address] [facility] [facility] [address], [place], [address] , [facility] 3 12:45:41 Acute sinusitis 79398881 Active 2022 Lorenza Holloway NP [address] [facility], [address], [place], [address] , [place] [facility] 3 12:04:37 Pain of right knee joint 69139825598 4100 Active 2022 Pranay Lee MD [address], [address], [place], [address] , [place] [facility] 3 09:55:48 Pain of bilateral hands 64274490554 367697 Active 2022 Pranay Lee MD [address], [address], [place], [address] , [place] [facility] 3 09:58:49 Onychomyc osis of toenails 544167753 Active 2022 Pranay Lee MD [address], [address], [place], [address] , [place] [facility] 3 10:01:09 Varicose veins of lower extremity 25225341 Active 2022 Pranay Lee MD [address], [address], [place], [address] , [place] [facility] 3 10:04:03 Vitamin B12 deficienc y (non anemic) 67009202 Active 2022 Pranay eLe MD [address], [address], [place], [address] , [place] [facility] 3 10:10:57 Obesity 913373629 Active 2022 Pranay Lee MD [address], [address], [place], [address] , [place] [facility] 3 10:11:04 History of malignant neoplasm of colon 111104072 Active 2022 Pranay Lee MD [address], [address], [place], [address] , [place] [facility] 3 10:13:23 Problem Notes None recorded. Procedures Surgical History Date Name Laterality Status Provider Name and Address Organization Details Recorded Time 01/26/20 21 Date of Last Colonoscopy completed Not Available [facility] [place] [facility] 01/02/2023 08:05:02 Colon Resection completed Not Available [facility] 01/02/2023 08:05:06 Lung Surgery completed Not Available [facility] 01/02/2023 08:05:06 Hysterectomy, Partial completed Not Available [facility] [place] [facility] 01/02/2023 08:05:06 Imaging Results Imaging Date Name Status LastModified by Organization Details LastModified Time 12/10/2022 US, doppler, venous completed [email or web address] [facility] [address], [place], [address], 10/31/2023 10:12:23 12/10/[email or web address] [facility] [address], [place], [address], 10/31/2023 10:12:23 12/24/2022 MAMMO, screening, bilateral completed [email or web address] [address] [place] [address], [address], 10/31/2023 10:12:23 12/10/2022 US, doppler echocardiogram completed [email or web address] [facility] [address], [place], [address], 10/31/2023 10:12:23 12/27/2022 cardiac stress test completed [email or web address] [facility] [address], [place], [address], 10/31/2023 10:12:23 12/20/2021 MAMMO, screening, bilateral completed [id number], [place], [address], 01/02/2023 08:13:39 10/31/2023 XR, hand, 3 or more view completed [facility] ([facility]) [address] [place], [address], 11/11/2023 10:41:43 10/31/2023 XR, knee, 3 view completed [address] (Imaging) [address] [facility], [place], [address], 11/11/2023 10:41:43 01/15/2024 MAMMO, screening, digital, bilateral completed [email or web address] [address], [place], [address], 01/15/2024 17:38:05 03/17/2024 electromyogram + nerve conduction study completed [address], [place], [address], 03/18/2024 10:17:10 Procedure Notes None recorded. Medical Equipment None Reported. Allergies No known drug allergies Medications Name Sig Start Date Stop Date Status Note LastModified by Organization Details LastModified Time cyclobenzap rine 10 mg tablet TAKE 1 TABLET BY MOUTH THREE TIMES DAILY NEEDED 05/24 completed Not Available Not Available Not Available amoxicillin 500 mg capsule Take 1 capsule every 12 hours by oral route for 10 days. active Not Available Not Available No t Available prednisone 10 mg tablet SEE ATTACHED SHEET active Not Available Not Available No t Available cefuroxime axetil 250 mg tablet TAKE 1 TABLET BY MOUTH TWICE A DAY 01/28 completed Not Available Not Available Not Available azithromyci n 250 mg tablet Take 2 TABLET EVERY DAY by oral route for 1 day then one tablet daily for the next four days active Not Available Not Available No t Available fluconazole 150 mg tablet TAKE 1 TABLET BY MOUTH EVERY DAY 10/17 completed Not Available Not Available Not Available hydrocodone 5 mg-acetamin ophen 325 mg tablet TAKE 1 TABLET BY MOUTH EVERY 4 HOURS NEEDED FOR PAIN 09/16 completed Not Available Not Available Not Available prochlorper azine maleate 5 mg tablet TAKE 1 TO 2 TABLETS EVERY 8 HOURS NEEDED FOR NAUSEA. 01/28 completed Not Available Not Available Not Available ondansetron HCl 8 mg tablet TAKE 1 TABLET ON DAYS 2 & 3 OF CHEMO, THEN EVERY 8 HOURS NEEDED 01/28 completed Not Available Not Available Not Available meloxicam 15 mg tablet Take 1 tablet every day by oral route with meals. active Not Available Not Available No t Available phenazopyri dine 200 mg tablet Take 1 tablet every 8 hours by oral route as needed for 3 days. active Not Available Not Available No t Available Medrol (Adiel) 4 mg tablets in a dose pack Take by oral route as directed on label active Not Available Not Available No t Available Tubersol 5 tub. unit/0.1 mL intradermal injection solution Take 0.1 mL by intraderm al route. active Not Available Not Available No t Available metronidazo le 500 mg tablet TAKE 1 TABLET BY MOUTH TWICE A DAY FOR 7 DAYS 10/17 completed Not Available Not Available Not Available ciprofloxac in 500 mg tablet TAKE 1 TABLET EVERY 12 HOURS WITH MEALS FOR 5 DAYS. 02/09 completed Not Available Not Available Not Available lidocaine-p rilocaine 2.5 %-2.5 % topical cream APPLY A LIBERAL AMOUNT TO AFFECTED AREA 2 HOURS PRIOR TO LAB VISIT, COVER AREA WITH CLING WRAP 01/28 completed Not Available Not Available Not Available Kenalog 40 mg/mL suspension for injection Take 60 mg every day by injection route for 1 day. active Not Available Not Available No t Available famotidine 20 mg tablet Take 1 tablet every day by oral route. active Not Available Not Available No t Available lorazepam 0.5 mg tablet TAKE 1 TABLET 45MIN BEFORE MRI. MAY REPEAT 15MIN PRIOR. NO DRIVING AFTER TAKING 01/28 completed Not Available Not Available Not Available dicyclomine 20 mg tablet TAKE 1 TABLET BY MOUTH 3 TIMES A DAY 01/28 completed Not Available Not Available Not Available ciprofloxac in 0.3 % eye drops PLACE 2 DROPS INTO BOTH EYES EVERY 2HR WHILE AWAKE X2DAYS, THEN EVERY 4HR WHILE AWAKE X5DAYS 01/28 completed Not Available Not Available Not Available meclizine 25 mg tablet 03/08 completed Not Available Not Available Not Available sulfacetami de sodium 10 % eye drops INSTILL 1 DROP INTO AFFECTED EYE(S) EVERY 2 3 HOURS DURING DAY AND LESS FREQUENTL Y AT NIGHT X5 DAYS 06/28 completed Not Available Not Available Not Available oseltamivir 75 mg capsule TAKE 1 CAPSULE BY MOUTH TWICE A DAY FOR 5 DAYS. 01/07 completed Not Available Not Available Not Available diclofenac 0.1 % eye drops INSTILL 1 DROP INTO AFFECTED EYE(S) BY OPHTHALMI C ROUTE 4 TIMES PER DAY as needed for disomfort active Not Available Not Available No t Available esomeprazol e magnesium 40 mg capsule,del ayed release TAKE 1 CAPSULE BY MOUTH EVERY DAY 01/28 completed Not Available Not Available Not Available diclofenac sodium 75 mg tablet,alisha yed release Take 1 tablet every 12 hours by oral route as needed for 30 days. 2023 active Not Available Not Available Not Avai lable Nasonex 50 mcg/actuati on [place] 12/09 completed Not Available Not Available Not Available neomycin 500 mg tablet TAKE 2 TABLETS AT 1 PM, 2PM, AND 10 PM THE DAY BEFORE SURGERY 01/28 completed Not Available Not Available Not Available ketoconazol e 2 % topical cream APPLY TO THE AFFECTED AREA(S) BY TOPICAL ROUTE BID 2023 active Not Available Not Available Not Avai lable ondansetron 4 mg disintegrat ing tablet TAKE 1 TABLET BY MOUTH EVERY 8 HOURS NEEDED 01/28 completed Not Available Not Available Not Available fluticasone propionate 50 mcg/actuati on nasal spray,suspe nsion 01/19 completed Not Available Not Available Not Available doxycycline hyclate 100 mg tablet TAKE 1 TABLET BY MOUTH TWICE A DAY FOR 10 DAYS 10/31 completed Not Available Not Available Not Available amoxicillin 875 mg-potassiu m clavulanate 125 mg tablet 12/08 completed Not Available Not Available Not Available clindamycin 1 % lotion APPLY TO AFFECTED AREA TWICE A DAY active Not Available Not Available No t Available enoxaparin 40 mg/0.4 mL subcutaneou s syringe INJECT 1 SYRINGE SUBCUTANE OUSLY DAILY. 01/28 completed Not Available Not Available Not Available cyclobenzap rine 5 mg tablet Take 1 tablet 3 times a day by oral route. active Not Available Not Available No t Available nitrofurant oin monohydrate /macrocryst als 100 mg capsule TAKE 1 CAPSULE BY MOUTH TWICE A DAY FOR 3 DAYS 10/17 completed Not Available Not Available Not Available peg 3350-electr olytes 236 gram-22.74 gram-6.74 gram-5.86 gram solution FOLLOW DIRECTION S FOR CT COLONOGRA PHY SCHEDULED ON 03/07/201701/28 completed Not Available Not Available Not Available GaviLyte-N 420 gram oral solution USE DIRECTED ACCORDING TO PACKAGE INSTRUCTI ONS 09/16 completed Not Available Not Available Not Available Suprep Bowel Prep Kit 17.5 gram-3.13 gram-1.6 gram oral solution USE DIRECTED 01/28 completed Not Available Not Available Not Available ID NOW COVID-19 Test Kit TEST DIRECTED 05/19 completed Not Available Not Available Not Available Paxlovid 300 mg (150 mg x 2)-100 mg tablets in a dose pack TAKE ACCORDING TO PACKAGE INSTRUCTI ONS 10/31 completed Not Available Not Available Not Available Vitals Date Recorded Body mass index (BMI) Body height Oxygen saturation Oxygen saturation in Arterial blood by Pulse oximetry Heart rate Body temperature Body weight Systolic blood pressure Diastolic blood pressure Provider Name and Address Organization Details Last Updated DateTime 2 28.9 kg/m2 157.48 cm 98 % 98 % 71 /min 98.1 [degF] 93261.5 9 g 110 mm[Hg] 76 mm[Hg] Not Available [facility] 3 08:05:41 Date Recorded Body mass index (BMI) Body height Oxygen saturation Oxygen saturation in Arterial blood by Pulse oximetry Heart rate Respiratory rate Body temperature Body weight Systolic blood pressure Diastolic blood pressure Provider Name and Address Organization Details Last Updated DateTime 2 29.3 kg/m2 157.48 cm 99 % 99 % 70 /min 16 /min 98.1 [degF] 72391.7 8 g 120 mm[Hg] 74 mm[Hg] Not Available [facility] 3 08:05:41 Date Recorded Body mass index (BMI) Body height Oxygen saturation Oxygen saturation in Arterial blood by Pulse oximetry Heart rate Respiratory rate Body temperature Body weight Systolic blood pressure Diastolic blood pressure Provider Name and Address Organization Details Last Updated DateTime 2 29.3 kg/m2 157.48 cm 98 % 98 % 84 /min 16 /min 98.2 [degF] 88436.7 8 g 118 mm[Hg] 80 mm[Hg] Not Available [facility] 3 08:05:41 Date Recorded Body weight Body mass index (BMI) Body height Body temperature Heart rate Oxygen saturation Oxygen saturation in Arterial blood by Pulse oximetry Systolic blood pressure Diastolic blood pressure Provider Name and Address Organization Details Last Updated DateTime 3 70001.2 6 g 30 kg/m2 160.02 cm 97.3 [degF] 71 /min 99 % 99 % 125 mm[Hg] 77 mm[Hg] Yaz Liu [place] [facility] [employer] 3 09:48:02 Date Recorded Body height Body mass index (BMI) Body weight Body temperature Heart rate Respiratory rate Oxygen saturation Oxygen saturation in Arterial blood by Pulse oximetry Systolic blood pressure Diastolic blood pressure Provider Name and Address Organization Details Last Updated DateTime 4 160.02 cm 30.1 kg/m2 70364.0 5 g 98.3 [degF] 70 /min 16 /min 99 % 99 % 128 mm[Hg] 70 mm[Hg] Patric Gonzales [place] [facility] [employer] 4 10:33:42 Social History Question Answer Notes LastModified by Organization Details LastModified Time Tobacco Smoking Status Never Smoker Not Available [facility] 01/02/2023 08:04:40 Do You Have An Advance Directive? No [id number] Information not available 01/02/2023 What Is Your Level Of Alcohol Consumption? Occasional [id number] Information not available 01/02/2023 What Is Your Level Of Caffeine Consumption? Occasional [id number] [id number] Information not available 01/02/2023 How Much Tobacco Do You Chew? None MIGRATION.0301 [id number] Information not available 01/02/2023 What Is Your Code Status? Full Code MIGRATION.0301 [id number] Information not available 01/02/2023 In The 14 Days Before Symptom Onset, Have You Had Close Contact With A Laboratory-confi rmed COVID-19 While That Case Was Ill? No MIGRATION.0301 [id number] Information not available 01/02/2023 In The 14 Days Before Symptom Onset, Have You Had Close Contact With A Person Who Is Under Investigation For COVID-19 While That Person Was Ill? No MIGRATION.0301 046065 Information not available 01/02/2023 What Type Of Diet Are You Following? SPECIFIC Low Sodium, Choleste rol, And Fat Diet MIGRATION.0301 705263 Information not available 01/02/2023 Which Illicit Or Recreational Drugs Have You Used? None MIGRATION.0301 923794 Information not available 01/02/2023 Do You Or Have You Ever Used E-cigarettes Or Vape? Never Used Electronic Cigarettes MIGRATION.0301 401260 Information not available 01/02/2023 What Is The Highest Grade Or Level Of School You Have Completed Or The Highest Degree You Have Received? 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 No MIGRATION.0301 187467 Information not available 01/02/2023 What Is The Fluoride Status Of Your Home? Unknown MIGRATION.0301 810063 Information not available 01/02/2023 Do You Use Insect Repellent Routinely? No MIGRATION.0301 850529 Information not available 01/02/2023 Where Do You Live? SingleLevelHouse MIGRATION.0301 294412 Information not available 01/02/2023 Do You Have A Medical Power Of Blasting Worker? No MIGRATION.0301 344184 Information not available 01/02/2023 Do You Have Any Pets? Yes MIGRATION.0301 124444 Information not available 01/02/2023 What Is Your Relationship Status? MIGRATION.0301 401913 Information not available 01/02/2023 Do You Use Your Seat Belt Or Car Seat Routinely? Yes MIGRATION.0301 785627 Information not available 01/02/2023 Do You Have Smoke And Carbon Monoxide Detectors In Your Home? Yes MIGRATION.0301 651147 Information not available 01/02/2023 Are You Passively Exposed To Smoke? No MIGRATION.0301 817849 Information not available 01/02/2023 Do You Or Have You Ever Used Smokeless Tobacco? Never Used Smokeless Tobacco MIGRATION.0301 720106 Information not available 01/02/2023 Are There Any Smokers In Your House? No MIGRATION.0301 775346 Information not available 01/02/2023 How Much Tobacco Do You Smoke? No MIGRATION.0301 073688 Information not available 01/02/2023 Do You Participate In Social Media? Yes MIGRATION.0301 741885 Information not available 01/02/2023 Do You Feel Stressed (tense, Restless, Nervous, Or Anxious, Or Unable To Sleep At Night)? [id number] MIGRATION.0301 796178 Information not available 01/02/2023 Do You Use Sunscreen Routinely? Yes MIGRATION.0301 042201 Information not available 01/02/2023 Have You Recently Traveled Abroad? No MIGRATION.300 320316 Information not available 01/02/2023 Are You Currently In School? No MIGRATION.300 947343 Information not available 01/02/2023 Sex: Female Functional Status Question Answer Note LastModified by Organizat ion Details LastModified Time What is your exercise level? Moderate [id number] 6 Information not available 01/02/2023 Mental Status None recorded. Family History Relationship Description Onset Age of this Age Resolved Age Notes LastModified by Organization Details LastModified Time Father Hodgkin's disease (clinical) MIGRATION.435 [id number] Not available 01/02/2023 08:05:07 Medical History No medical history recorded. Gynecological History Statement/Question Response Date of Last Pap Date of Last Mammogram Date of Last Colonoscopy 01/25/2021 Date of LMP Obstetrics History GPAL:G 2 P 2 0 0 0 Type Value Full Term 2 Total 2 Immunizations Vaccine Type Date Status Note Provider Nam e and Address Organization Details Recorded Time SARS-COV-2 (COVID-19) vaccine, UNSPECIFIED 1 completed Not Available [facility] 01/02/2023 08:13:15 Tdap 0 completed Not Available [facility] 01/02/2023 08:13:15 Past Encounters Encounter ID Performer Location Encounter Start Date Encounter Closed Date Diagnosis/Indication Diagnosis SNOMED-CT Code Diagnosis ICD10 Code Diagnosis Note [id number] [facility] Steven [address] [place] [address]76-167 1 02/14/2021 00:00:00 02/14/2021 14:16:14 [id number] [facility] Steven [address] [place] [address] 1 03/01/2021 00:00:00 03/01/2021 15:25:58 [id number] [facility] [address] [address] 03/02/2021 00:00:00 03/02/2021 15:07:[id number] [address] 05/19/2021 00:00:00 05/19/2021 16:39:15 [id number] [facility] Ramiro perales [facility] [place] [address] 11/09/2021 00:00:00 11/09/2021 17:13:52 [id number] [facility] [place] [facility] [place] [place] [address] 12/26/2021 00:00:00 12/26/2021 11:28:50 [id number] [facility] [facility] [place] [address] 06/28/2022 00:00:00 06/28/2022 14:28:17 [id number] [facility] Rami[facility] mukesh [facility] [place] [address] 10/17/2022 00:00:00 10/17/2022 14:42:22 [id number] Pranay Lee MD [address] [address] 10/31/2023 09:36:30 10/31/2023 10:20:27 Pain of right knee joint [id number] 57002 M25.561 Neuropathy 050346978 G62 .9 B/l UE Pain of bi lateral hands 9106569397 8795884 M79.641 Onychomyco sis of toenails 180822061 B35.1 Lt Varicose v eins of lower extremity 54480060 I83.893 Vitamin B1 2 deficiency (non anemic) 84274283 E53.8 Obesity 259124148 E66.9 History of malignant neoplasm of colon 896473994 Z85.038 Sigmoid colon [id number] Pranay Lee MD [address] [address] 11/11/2023 10:21:39 11/11/2023 10:54:47 Pain of right knee joint 7414126167 90859 M25.561 Neuropathy 747987555 G62 .9 B/l UE Pain of bi lateral hands 5857087624 1041585 M79.641 Onychomyco sis of toenails 228531812 B35.1 Lt Varicose v eins of lower extremity 71344941 I83.893 Vitamin B1 2 deficiency (non anemic) 76219049 E53.8 History of malignant neoplasm of colon 947192245 Z85.038 Sigmoid colon Obesity 420913445 E66.9 Health Concerns Section Related Observation LastModified by Organization Detai ls LastModified Time None Recorded Concern Status LastModified by Organization Details LastModified Time None Recorded Advance Directives Directive N: Payers Encounter Date Sequence Insurance Name Policy Number Policy Todd Covered Member ID Todd Member ID Guarantor Name 10/31/2023 1 [place] [id number] John Rizzo [id number] Jessica Rizzo 11/11/2023 1 [place] [id number] 3 John Nelda NailsSo [id number] Jessica Rizzo Notes Date Note Type Note Provider Name and Address Organization Details Recorded Time 10/31/2023 text/html ACV:Pt has multiple concerns. C/o Rt leg/knee swelling for last few yrs. Pt has not seen any specialist recently for this. Pt has seen Cardio for this in 12/27 and had echo and US done with them in 12/27 and it all came back good. Pt does lot of standing on a daily basis. Denies any chest pain/sob/palpitat ions/n/v/d/fever/ chills. C/o b/l hand, wrist area pain and tingling & numbness over both UEs from elbow down for last several years. Pt has not done any testing for this and not seen any specialist either. C/o Lt great toenail rash since 05/26. Pt says she had nails done at that time and since than, her Lt great toenail has this discoloration. Pranay Lee MD [address] [place] [address], [facility] [address], [place], [address], [place] [employer] 10/31/2023 10:13:46 11/11/2023 text/html Pt is here for f/u on her x-rays and pain. Doing overall same as before. Pt is not taking any pain med though. C/o b/l hand, wrist area pain and tingling & numbness over both UEs from elbow down for last several years. Pt has not done any testing for this and not seen any specialist either. C/o Rt leg/knee swelling for last few yrs. Pt has not seen any specialist recently for this. Pt has seen Cardio for this in 12/27 and had echo and US done with them in 12/27 and it all came back good. Pt does lot of standing on a daily basis. Denies any chest pain/sob/palpitat ions/n/v/d/fever/ chills. C/o Lt great toenail rash since 05/26. Pt says she had nails done at that time and since than, her Lt great toenail has this discoloration. Pranay Lee MD [address] [place] [place] [address], [facility] [address], [place], [address], [place] - [facility] 11/11/2023 10:53:19 OBGyn Episode No OBEpisode recorded.
--- OUTSIDE RECORDS SUMMARY | 2025-01-15 09:18 | XMS_ITS | Clinical Summary ---
Author Organization [facility] Address [address] [place] [address] Care Team Providers Care Associate Professor Of Counseling Name Role Phone Unavailable Primary Care Provider Unavailabl e Social History Tobacco Use Types Packs/Day Years Used Date Smoking Tobacco: Never Assessed Comments Unknown Sex and Gender Information Value Date Recorded Sex Assigned at Not on file Legal Sex Female 4:58 PM CDT Gender Identity Not on file Sexual Orientation Not on file Plan of Treatment Health Maintenance Due Date Last Done Comments Cervical Cancer Screening Pa p Smear (Age 30 to 64) Every 3 Years 1972 Colorectal Cancer Screening Colonoscopy (10 Years) 1972 Annual Physical 1975 Hepatitis C 1990 DTaP, Tdap and Td Vaccines ( 1 - Tdap) 1991 Hepatitis B Vaccines (1 of 3 - 19+ 3-dose series) 1991 Cervical Cancer Screening Pa p with HPV Testing (Age 30 to 64) Every 5 Years 2002 Cervical Cancer Screening with HPV 2002 Mammogram Screening 2012 Zoster Vaccines (1 of 2) 2022 COVID-19 Vaccine (2023-2 5 season) 2024 Influenza Adult (#1) 2024 Meningococcal B Vaccine Aged Out No l onger eligible based on patient's age to complete this topic Meningococcal Vaccine Aged Out No doug jona eligible based on patient's age to complete this topic Pneumococcal Vaccine: Pediat rics (0 to 5 Years) and At-Risk Patients (6 to 64 Years) Aged Out No longer eligible b ased on patient's age to complete this topic RSV Immunizations Under 20 Months Aged Out No longer eligible based on patient's age to complete this topic
--- OUTSIDE RECORDS SUMMARY | 2025-01-15 09:18 | XMS_ITS | Referral Summary ---
Author Organization [facility] Address [address] [place] [address] Care Team Providers Care Electroplating Sales Representative Name Role Phone Roberta Bolden MD Unavailable [phone] Lorenza Holloway NP Primary Care Provider [...] (06/25/2019): Added automatically from request for surgery [id number] Lung nodule 06/24/2019 Malignant neoplasm of sigmoid colon 03/05/2017 Overview (06/29/2019): On 03/11/2017, she underwent a left hemicolectomy. Surgical specimen revealed a [id number] sigmoid adenocarcinoma, moderately differentiated, positive LVI, positive PNI, 5/17 lymph nodes positive, negative surgical margins, MMR intact. 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 Gender Identity Not on file Sexual Orientation Not on file Last Filed Vital Signs Vital Sign Reading Time Taken Comments Blood Pressure 117/75 09/15/2024 2:20 PM VICE PRESIDENT FOR PHILANTHROPY Pulse 76 09/15/2024 2:20 PM VICE PRESIDENT FOR PHILANTHROPY Temperature 36.8 C (98.3 F) 09/15/2024 2:20 PM VICE PRESIDENT FOR PHILANTHROPY Respiratory Rate 16 09/15/2024 2:20 PM VICE PRESIDENT FOR PHILANTHROPY Oxygen Saturation 97% 09/15/2024 2:20 PM VICE PRESIDENT FOR PHILANTHROPY Inhaled Oxygen Concentration - - Weight 75.1 kg (165 lb 9.6 oz) 09/15/2024 2:20 P M VICE PRESIDENT FOR PHILANTHROPY Height 160 cm (5' 3 ) 09/15/2024 2:20 PM VICE PRESIDENT FOR PHILANTHROPY Body Mass Index 29.33 09/15/2024 2:20 PM VICE PRESIDENT FOR PHILANTHROPY Plan of Treatment Not on file Procedures Procedure Name Priority Date/Time Associated Diagnosis [...] agrees with it. ACC# Date Time Exam [id number] March 07, 2017 09:42:[id number] Colonography Dx w/o ACC# Date Time Exam [id number] March 07, 2017 09:42:[id number] Colonography Dx w/o EXAMINATION: CT colonography [...] BILLS M.D. on Mar 07 2017 4:03P [id number] Procedure Note Miscellaneous, Not In File / Provider, MD Tsering - 03/30/2017 NINFA BILLS M.D. LIZZ HA MD FINAL REPORT The radiology attending physician has personally reviewed this study, and has reviewed and/or edited this written report and agrees with it. ACC# Date Time Exam [id number] March 07, 2017 09:42:[id number] Colonography Dx w/o ACC# Date Time Exam [id number] March 07, 2017 09:42:[id number] Colonography Dx w/o EXAMINATION: CT colonography [...] BILLS M.D. on Mar 07 2017 4:03P [id number] us Not In File Miscellaneous IMG CT PROCEDURES Andreea l Result from Last 3 Months or Most Recently Relevant to Health Maintenance Insurance ANTHEM ACCESS Advance Directives For more information, please contact: [phone] * Full Code (Latest Code Status on File) Date Activated Date Inactivated Comments 07/08/2019 8:42 PM 07/10/2019 7:54 PM Care Teams Electroplating Sales Representative Relationship Specialty Start Date End Date Lorenza Holloway NP [address] [facility] [place] [address] PCP - General 08/25/21 Roberta Bolden MD [address] [place] [address] Referring Physician Gastroenterology 02/28/21
--- OUTSIDE RECORDS SUMMARY | 2025-01-15 09:18 | XMS_ITS | Encounter Summary ---
Author Organization [facility] Address [address] [place] [address] Phone Care Team Providers Care Industrial Sewer Name Role Phone Margy Serna MD Primary Care Provider + Pranay Lee MD Primary Care Provider [phone] Pranay Lee MD Primary Care Provider [phone] John Bolden MD Unavailable [phone] Lorenza Holloway NP Primary Care Provider + Encounter Details Date Type Department Care Team (Latest Contact Info) Description 03/13/2018 Orders Only [facility] Scanning, Provider Social History Tobacco Use Types Packs/Day Years Used Date Smoking Tobacco: Former Comments Unknown Sex and Gender Information Value Date Recorded Sex Assigned at Not on file 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 Gender Identity Not on file Sexual Orientation Not on file documented as of this encounter Plan of Treatment Not on file documented as of this encounter Procedures Procedure Name Priority Date/Time Associated Diagnosis Comments SCAN - LABS 03/13/2018 documented in this encounter Results * SCAN - LABS (03/13/2018) us Provider Scanning Edited Result - Final documented in this encounter Visit Diagnoses Not on filedocumented in this encounter Care Teams Industrial Sewer Relationship Specialty Start Date End Date Margy Serna MD [address] [place] [address] PCP - General 03/13/18 06/03/18 Pranay Lee MD [address] [place] [address] PCP - General 06/04/18 11/08/19 Pranay Lee MD [address] [facility] [place] [address] PCP - General 11/09/19 08/24/21 Lorenza Holloway NP [address] [facility] [place] [address] PCP - General 08/25/21 John Bolden MD [address] [facility] [address] [place] [address] Referring Physician Gastroenterology 02/28/21 documented as of this encounter
--- OUTSIDE RECORDS SUMMARY | 2025-01-15 09:18 | XMS_ITS | Encounter Summary ---
Author Organization [facility] Address [address] [place] [address] Phone Care Team Providers Care Supervisor Cap And Hat Production Name Role Phone Deysi Best MD Primary Care Provider [phone] Maryg Serna MD Primary Care Provider + Unknown, Notinfile Primary Care Provider Unavail able Margy Serna MD Primary Care Provider + Unknown, Notinfile Primary Care Provider Unavail able Maryg Serna MD Primary Care Provider + Unknown, Notinfile Primary Care Provider Unavail able Pranay Lee MD Primary Care Provider [phone] Margy Serna MD Primary Care Provider + Pranay Lee MD Primary Care Provider [phone] Margy Serna MD Primary Care Provider + Pranay Lee MD Primary Care Provider [phone] Pranay Lee MD Primary Care Provider [phone] John Bolden MD Unavailable [phone] Lorenza Holloway BOARD LINER OPERATOR Primary Care Provider + Encounter Details Date Type Department Care Team (Latest Contact Info) Description 1972 Orders Only [facility] Scanning, Provider Social History Tobacco Use Types Packs/Day Years Used Date Smoking Tobacco: Never Assessed Comments Unknown Sex and Gender Information Value Date Recorded Sex Assigned at Not on file Legal Sex Female 3: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 MANAGER Gender Identity Not on file Sexual Orientation Not on file documented as of this encounter Plan of Treatment Not on file documented as of this encounter Procedures Procedure Name Priority Date/Time Associated Diagnosis Comments GI - RESULT 1972 documented in this encounter Results * GI - RESULT (1972) Anatomical Region Laterality Modality Other Provider Scanning Final Result documented in this encounter Visit Diagnoses Not on filedocumented in this encounter Care Teams Supervisor Cap And Hat Production Relationship Specialty Start Date End Date Deysi Best MD [address] [address] PCP - General 02/28/17 04/08/17 Margy Serna MD [address] [place] [address] PCP - General 04/09/17 10/03/17 Unknown, Notinfile PCP - General 10/04/17 10/16/17 Margy Serna MD [address] [place] [address] PCP - General 10/17/17 10/27/17 Unknown, Notinfile PCP - General 10/28/17 12/16/17 Margy Serna MD [address] [place] [address] PCP - General 12/17/17 02/24/18 Unknown, Notinfile PCP - General 02/25/18 03/02/18 Pranay Lee MD [address] [place] [address] PCP - General 03/03/18 03/03/18 Margy Serna MD [address] [place] [address] PCP - General 03/04/18 03/11/18 Pranay Lee MD [address] [place] [address] PCP - General 03/12/18 03/12/18 Margy Serna MD [address] [place] [address] PCP - General 03/13/18 06/03/18 Pranay Lee MD [address] [place] [address] PCP - General 06/04/18 11/08/19 Pranay Lee MD [address] [facility] [place] [address] PCP - General 11/09/19 08/24/21 Lorenza Holloway NP [address] [facility] [place] [address] PCP - General 08/25/21 John Bolden MD [address] [id number] Referring Physician Gastroenterology 02/28/21 documented as of this encounter
--- OUTSIDE RECORDS SUMMARY | 2025-01-15 09:18 | XMS_ITS | Encounter Summary ---
Author Organization [facility] Address [address] [place] [address] Phone Care Team Providers Care Distribution Manager Name Role Phone Margy Serna MD Primary Care Provider + Unknown, Ursula Primary Care Provider Unavail able Margy Serna MD Primary Care Provider + Unknown, Notinfile Primary Care Provider Unavail able Margy Serna MD Primary Care Provider + Unknown, Notinfile Primary Care Provider Unavail able Pranay Lee MD Primary Care Provider [phone] Margy Serna MD Primary Care Provider + Pranay Lee MD Primary Care Provider [phone] Margy Serna MD Primary Care Provider + Pranay Lee MD Primary Care Provider [phone] Pranay Lee MD Primary Care Provider [phone] John Bolden MD Unavailable [phone] Lorenza Holloway NP Primary Care Provider + Encounter Details Date Type Department Care Team (Latest Contact Info) Description 06/29/2017 Orders Only [facility] CONVERSION Scanning, Provider Social History Tobacco Use Types Packs/Day Years Used Date Smoking Tobacco: Former Comments Unknown Sex and Gender Information Value Date Recorded Sex Assigned at Not on file Legal Sex Female 3:[address]ER Gender Identity Not on file Sexual Orientation Not on file documented as of this encounter Plan of Treatment Not on file documented as of this encounter Procedures Procedure Name Priority Date/Time Associated Diagnosis Comments VASCULAR LABORATORY REPORT 06/29/2017 4:13 PM CDT documented in this encounter Results * VASCULAR LABORATORY REPORT (06/29/2017 4:13 PM CDT) Anatomical Region Laterality Modality Ultrasound us Provider Scanning CV VASCULAR PROCEDURES Final R esult documented in this encounter Visit Diagnoses Not on filedocumented in this encounter Care Teams Distribution Manager Relationship Specialty Start Date End Date Margy Serna MD [address] [place] [address] PCP - General 04/09/17 10/03/17 Unknown, Notinfile PCP - General 10/04/17 10/16/17 Margy Serna MD [address] [place] [address] PCP - General 10/17/17 10/27/17 Unknown, Notinfile PCP - General 10/28/17 12/16/17 Margy Serna MD [address] [place] [address] PCP - General 12/17/17 02/24/18 Unknown, Notinfile PCP - General 02/25/18 03/02/18 Pranay Lee MD [address] [place] [address] PCP - General 03/03/18 03/03/18 Margy Serna MD [address] [place] [address] PCP - General 03/04/18 03/11/18 Pranay Lee MD [address] [place] [address] PCP - General 03/12/18 03/12/18 Margy Serna MD [address] [place] [address] PCP - General 03/13/18 06/03/18 Pranay Lee MD [address] [place] [address] PCP - General 06/04/18 11/08/19 Pranay Lee MD [address] [facility] [place] [address] PCP - General 11/09/19 08/24/21 Lorenza Holloway, KEENA [address] [place] [address] PCP - General 08/25/21 John Bolden MD [address] [facility] [address] [place] [address] Referring Physician Gastroenterology 02/28/21 documented as of this encounter
== END 2025-01-15 08:49 | disposition home or self-care (01) ==
LOC: ANHIMG 08:51
PROVIDERS: PCP Nurse Practitioner Adult Health; Visit Provider Nurse Practitioner Adult Health
DX: Z12.31 Encounter for screening mammogram for malignant neoplasm of breast (principal)
CPT/HCPCS: 77063; 77067

== ENCOUNTER 2025-07-07 09:45 | Outpatient (CLI) | payer BC, SELFPAY ==
--- NOTE | ~2025-07-07 | XR_ITS ---
X-rays left hand Indication: Pain, M25.532 Comparison: None Technique: 3 views left hand Findings/Impression: 1. No fracture, dislocation, or other acute abnormality of left hand. 2. Small lucent focus within distal scaphoid and another within lunate, probably benign cystic focus versus degenerative change. Reviewed, dictated and finalized at location R.
--- OUTSIDE RECORDS SUMMARY | 2025-07-07 10:40 | XMS_ITS | Clinical Summary ---
Author Organization [facility] al Address [address] [place] [address] Care Team Providers Care Senior Paralegal Name Role Phone Roberta Bolden MD Unavailable [phone] Lorenza Holloway NP Primary Care Provider [...] (06/25/2019): Added automatically from request for surgery [id number] Lung nodule 06/24/2019 Malignant neoplasm of sigmoid colon 03/05/2017 Overview (06/29/2019): On 03/11/2017, she underwent a left hemicolectomy. 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 Gender Identity Not on file Sexual Orientation Not on file Obstetrics History Last Filed Vital Signs Vital Sign Reading Time Taken Comments Blood Pressure 117/75 09/15/2024 2:20 PM BARREL CLEANER Pulse 76 09/15/2024 2:20 PM BARREL CLEANER Temperature 36.8 C (98.3 F) 09/15/2024 2:20 PM BARREL CLEANER Respiratory Rate 16 09/15/2024 2:20 PM BARREL CLEANER Oxygen Saturation 97% 09/15/2024 2:20 PM BARREL CLEANER Inhaled Oxygen Concentration - - Weight 75.1 kg (165 lb 9.6 oz) 09/15/2024 2:20 P M BARREL CLEANER Height 160 cm (5' 3) 09/15/2024 2:20 PM BARREL CLEANER Body Mass Index 29.33 09/15/2024 2:20 PM BARREL CLEANER Plan of Treatment Health Maintenance Due Date Last Done Comments Depression Screening 1972 Hepatitis C Screening 1972 Hepatitis B Screening 1990 Regular Well Visit/Exam 18-64 1990 Pneumococcal vaccine <65 (1 of 2 - PCV) 1991 Zoster Vaccine (1 of 2) 1991 Breast Cancer Screening-Mammogram 12/24/2023 023, 12/21/2021 Covid-19 Vaccine ( season) 2024 11/02/2021, 01/25/2021, 01/12/2021 Influenza Vaccine (#1) 2025 Colon Cancer Screening-Colonoscopy 03/07/20272016 DTaP/Tdap/Td Vaccine (2 [...] agrees with it. ACC# Date Time Exam [id number] March 07, 2017 09:42:[id number] Colonography Dx w/o ACC# Date Time Exam [id number] March 07, 2017 09:42:[id number] Colonography Dx w/o EXAMINATION: CT colonography [...] BILLS M.D. on Mar 07 2017 4:03P [id number] Procedure Note Miscellaneous, Not In File / Provider, Historical, MD - 03/30/2017 NINFA BILLS M.D. LIZZ HA MD FINAL REPORT The radiology attending physician has personally reviewed this study, and has reviewed and/or edited this written report and agrees with it. ACC# Date Time Exam [id number] March 07, 2017 09:42:[id number] Colonography Dx w/o ACC# Date Time Exam [id number] March 07, 2017 09:42:[id number] Colonography Dx w/o EXAMINATION: CT colonography [...] BILLS M.D. on Mar 07 2017 4:03P [id number] us Not In File Miscellaneous IMG CT PROCEDURES Andreea l Result from Last 3 Months or Most Recently Relevant to Health Maintenance Insurance ANTHEM ACCESS ANTHEM ACCESS Advance Directives For more information, please contact: [phone] * Full Code (Latest Code Status on File) Date Activated Date Inactivated Comments 07/08/2019 8:42 PM 07/10/2019 7:54 PM Care Teams Senior Paralegal Relationship Specialty Start Date End Date Lorenza Holloway NP [address] [address] PCP - General 08/25/21 Roberta Bolden MD [address] [address] Referring Physician Gastroenterology 02/28/21
--- OUTSIDE RECORDS SUMMARY | 2025-07-07 10:40 | XMS_ITS | Clinical Summary ---
Author Organization [facility] Address [address] [place] [id number] Care Team Providers Care Car Dropper Name Role Phone Unavailable Primary Care Provider [...] Screening with HPV 2002 Mammogram Screening 2012 Pneumococcal Vaccine: 50+ Ye ars (1 of 1 - PCV) 2022 Zoster Vaccines (1 of 2) 2022 COVID-19 Vaccine (1 - 2023-2 5 season) 2025 Meningococcal B Vaccine Aged Out No l onger eligible based on patient's age to complete this topic Meningococcal Vaccine Aged Out No doug jona eligible based on patient's age to complete this topic RSV Immunizations Under 20 Months Aged Out No longer eligible based on patient's age to complete this topic
--- OUTSIDE RECORDS SUMMARY | 2025-07-07 10:40 | XMS_ITS | Encounter Summary ---
Author Organization [facility] Address [address] [place] [address] Phone Care Team Providers Care Aquatics Coordinator Name Role Phone Margy Serna MD Primary Care Provider + Pranay Lee MD Primary Care Provider [phone] Pranay Lee MD Primary Care Provider [phone] John Bolden MD Unavailable [phone] Lorenza Holloway NP Primary Care Provider + Encounter Details Date Type Department Care Team (Latest Contact Info) Description 03/13/2018 Orders Only [facility] Scanning, Provider Social History Tobacco Use Types Packs/Day Years Used Date Smoking Tobacco: Former Comments Unknown Sex and Gender Information Value Date Recorded Sex Assigned at Not on file 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 Gender Identity Not on file Sexual Orientation [...] on filedocumented in this encounter Care Teams Aquatics Coordinator Relationship Specialty Start Date End Date Margy Serna MD [address] [place] [address] PCP - General 03/13/18 06/03/18 Pranay Lee MD [address] [place] [address] PCP - General 06/04/18 11/08/19 Pranay Lee MD [address] [facility] [place] [address] PCP - General 11/09/19 08/24/21 Lorenza Holloway NP [address] [place] [address] PCP - General 08/25/21 John Bolden MD [address] [place] [address] Referring Physician Gastroenterology 02/28/21 documented as of this encounter
--- OUTSIDE RECORDS SUMMARY | 2025-07-07 10:40 | XMS_ITS ---
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 Surgical specimen revealed a [id number] sigmoid adenocarcinoma, moderately differentiated, positive LVI, positive PNI, 5/17 lymph nodes positive, negative surgical margins, MMR intact. Current Treatment and Therapy Plans No current plan information found. Past Treatment and Therapy Plans No past plan information found. Lifetime Dose Tracking * Chemical Lifetime Dose Automatic Entry Manual Entr y DLP 9,633 mGycm 9,633 mGycm 0 mGycm
--- OUTSIDE RECORDS SUMMARY | 2025-07-07 10:40 | XMS_ITS | Encounter Summary ---
Author Organization [facility] Address [address] [place] [address] Phone Care Team Providers Care Storm Sash Maker Name Role Phone Deysi Best MD Primary Care Provider [phone] Margy Serna MD Primary Care Provider + Unknown, Notinfile Primary Care Provider Unavail able Margy Serna MD Primary Care Provider + Unknown, Notinfile Primary Care Provider Unavail able Margy Serna MD Primary Care Provider + Unknown, Notinfile Primary Care Provider Unavail able Pranay Lee MD Primary Care Provider [phone] Margy Serna MD Primary Care Provider + Pranay Lee MD Primary Care Provider [phone] Margy Serna MD Primary Care Provider + Pranay Lee MD Primary Care Provider [phone] Pranay Lee MD Primary Care Provider [phone] John Bolden MD Unavailable [phone] Lorenza Holloway TELEVISION OPERATOR Primary Care Provider + Encounter Details Date Type Department Care Team (Latest Contact Info) Description 1972 Orders Only [facility] Scanning, Provider Social History Tobacco Use Types Packs/Day Years Used Date Smoking Tobacco: Never Assessed Comments Unknown Sex and Gender Information Value Date Recorded Sex Assigned at Not on file 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 Gender Identity Not on file Sexual Orientation [...] on filedocumented in this encounter Care Teams Storm Sash Maker Relationship Specialty Start Date End Date Deysi Best MD [address] [address] PCP - General 02/28/17 04/08/17 Margy Serna MD [address] [place] [address] PCP - General 04/09/17 10/03/17 Unknown, Notinfile PCP - General 10/04/17 10/16/17 Margy Serna MD [address] [place] [address] PCP - General 10/17/17 10/27/17 Unknown, Notinfile PCP - General 10/28/17 12/16/17 Margy Serna MD [address] [place] [address] PCP - General 12/17/17 02/24/18 Unknown, Notinfile PCP - General 02/25/18 03/02/18 Pranay Lee MD [address] [place] [address] PCP - General 03/03/18 03/03/18 Margy Serna MD [address] [place] [address] PCP - General 03/04/18 03/11/18 Pranay Lee MD [address] [place] [address] PCP - General 03/12/18 03/12/18 Margy Serna MD [address] [place] [address] PCP - General 03/13/18 06/03/18 Pranay Lee MD [address] [place] [address] PCP - General 06/04/18 11/08/19 Pranay Lee MD [address] [facility] [place] [address] PCP - General 11/09/19 08/24/21 Lorenza Holloway NP [address] [place], [place] [id number] PCP - General 08/25/21 John Bolden MD [address] [place] [address] Referring Physician Gastroenterology 02/28/21 documented as of this encounter
--- OUTSIDE RECORDS SUMMARY | 2025-07-07 10:40 | XMS_ITS | Encounter Summary ---
Author Organization [facility] Address [address] [place] [address] Phone Care Team Providers Care Telephonic Case Manager Name Role Phone Margy Serna MD Primary Care Provider + Unknown, Ursula Primary Care Provider Unavail able Margy Serna MD Primary Care Provider + Unknown, Notinfile Primary Care Provider Unavail able Margy Serna MD Primary Care Provider + Unknown, Notinfile Primary Care Provider Unavail able Pranay Lee MD Primary Care Provider [phone] Margy Serna MD Primary Care Provider + Pranay Lee MD Primary Care Provider [phone] Margy Serna MD Primary Care Provider + Pranay Lee MD Primary Care Provider [phone] Pranay Lee MD Primary Care Provider [phone] John Bolden MD Unavailable [phone] Lorenza Holloway NP Primary Care Provider + Encounter Details Date Type Department Care Team (Latest Contact Info) Description 06/29/2017 Orders Only [facility] Scanning, Provider Social History Tobacco Use Types Packs/Day Years Used Date Smoking Tobacco: Former Comments Unknown Sex and Gender Information Value Date Recorded Sex Assigned at Not on file 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 Gender Identity Not on file Sexual Orientation [...] on filedocumented in this encounter Care Teams Telephonic Case Manager Relationship Specialty Start Date End Date Margy Serna MD [address] [place] [address] PCP - General 04/09/17 10/03/17 Unknown, Notinfile PCP - General 10/04/17 10/16/17 Margy Serna MD [address] [place] [address] PCP - General 10/17/17 10/27/17 Unknown, Notinfile PCP - General 10/28/17 12/16/17 Margy Serna MD [address] [place] [address] PCP - General 12/17/17 02/24/18 Unknown, Notinfile PCP - General 02/25/18 03/02/18 Pranay Lee MD [address] [place] [address] PCP - General 03/03/18 03/03/18 Margy Serna MD [address] [place] [address] PCP - General 03/04/18 03/11/18 Pranay Lee MD [address] [place] [address] PCP - General 03/12/18 03/12/18 Margy Serna MD [address] [place] [address] PCP - General 03/13/18 06/03/18 Pranay Lee MD [address] [place] [address] PCP - General 06/04/18 11/08/19 Pranay Lee MD [address] [facility] [place] [address] PCP - General 11/09/19 08/24/21 Lorenza Holloway NP [address] [facility] [address] [place] [address] PCP - General 08/25/21 John Bolden MD [address] [facility] [address] [place] [address] Referring Physician Gastroenterology 02/28/21 documented as of this encounter
== END 2025-07-07 09:46 | disposition home or self-care (01) ==
PROVIDERS: PCP Nurse Practitioner Adult Health; Visit Provider Plastic Surgery
DX: M25.532 Pain in left wrist (principal)
CPT/HCPCS: 73130